=== PATIENT | male | born 1955 | race Hispanic/Latino ===

== ENCOUNTER 2018-01-27 07:58 | Emergency (ER) | payer MEDICARE, OTHER ==
[2018-01-27 08:50] LABS: Absolute Lymphocytes (CBC) 2.3 K/uL (0.7-4.9); Absolute Monocytes 0.4 K/uL (0.1-1.3); Absolute Neutrophil 2.5 K/uL (1.8-8.0); Basophils % 0.8 % (0-1.3); Eosinophils % 6.4 % (0-4.4); Hematocrit 45.3 % (39.6-49.0); Lymphocytes % 40.5 % (15.3-44.8); MCH 33.5 pg (27.0-35.0); MCV 95.3 fL (80-100); Monocytes % 7.4 % (3.3-12.3); RBC Red Blood Cell Count 4.76 M/uL (4.33-5.43)
[2018-01-27 09:00] LABS: BUN Blood Urea Nitrogen 9 mg/dL (7-18); Bicarbonate 26 mmol/L (21-32); Glucose Level 129 mg/dL (74-106); Potassium 3.8 mmol/L (3.5-5.1); Sodium Level 141 mmol/L (136-145)
--- NOTE | 2018-01-27 09:49 | RAD REPORT ---
EXAM DESCRIPTION: CT - Head Brain Wo Cont - 01/27/2018 9:18 am CLINICAL HISTORY: Numbness to left face COMPARISON: None. TECHNIQUE: Computed axial tomography of the head was obtained. IV contrast was not requested. All CT scans are performed using dose optimization technique as appropriate and may include automated exposure control or mA/KV adjustment according to patient size. FINDINGS: An intracranial bleed is not seen . The ventricles are normal in caliber. No extra-axial fluid collection is noted. Fluid within the sinuses/ mastoids is not seen. IMPRESSION: No acute intracranial abnormality is seen. If patient's symptoms persist MRI of the bra in would be recommended.
--- NOTE | 2018-01-27 09:56 | RAD REPORT ---
EXAM DESCRIPTION: CT - Soft Tissue Neck W/Contr - 01/27/2018 9:20 am CLINICAL HISTORY: Neck pain with neck swelling COMPARISON: None. TECHNIQUE: Computed axial tomography of the neck was obtained. 50 cc Isovue 300 was administered in travenously. Coronal and sagittal reconstruction was performed. All CT scans are performed using dose optimization technique as appropriate and may include automated exposure control or mA/KV adjustment according to patient size. FINDINGS: The pharynx, tongue base, larynx and subglottic trachea appear unremarkable The parotid, submandibular and thyroid glands appear unremarkable. No lymphadenopathy is seen The sinuses and mastoids are clear. IMPRESSION: Unremarkable examination.
--- NOTE | 2018-01-27 10:01 | ER ---
Nurse's Notes [facility] Name: Charanjit Lopez Age: 62 yrs Sex: Male : 1955 Arrival Date: 01/27/2018 Time: 08:03 Bed 14 Private MD: Raf Dixon Diagnosis: Facial spasm Presentation: 01/27 08:12 Presenting complaint: Patient states: has had left sided neck pain X 2 days, thinks he iw slept wrong, also feels intermittent twitching and numbness on left side of face, denies weakness in arms or legs, pt also states he felt a pop in left shoulder 4-5 days ago and has had pain since then. Transition of care: patient was not received from another setting of care. Onset of symptoms was January 25, 2018. Risk Assessment: Do you want to hurt yourself or someone else? Patient reports no desire to harm self or others. Initial Sepsis Screen: Does the patient meet any 2 criteria? No. Patient's initial sepsis screen is negative. Does the patient have a suspected source of infection? No. Patient's initial sepsis screen is negative. Care prior to arrival: None. 08:12 Method Of Arrival: Ambulatory iw 08:12 Acuity: DARION 3 iw Historical: - Allergies: 08:24 NKA; iw - Home Meds: 08:24 metformin 500 mg Oral tab 1 tab 2 times per day [Active]; Hydrocodone-Acetaminophen iw Oral [Active]; - PMHx: 08:24 Diabetes - NIDDM; Chronic pain; iw - PSHx: 08:24 Lino hip replacement; knee replacement; Hernia repair; left femur; iw - Immunization history:: Adult Immunizations. - Ebola Screening: : Patient negative for fever greater than or equal to 101.5 degrees Fahrenheit, and additional compatible Ebola Virus Disease symptoms Patient denies exposure to infectious person Patient denies travel to an Ebola-affected area in the 21 days before illness onset No symptoms or risks identified at this time. - Family history:: not pertinent. - Social history:: Smoking status: Patient/guardian denies using tobacco. - Hospitalizations: : No recent hospitalization is reported. Screenin:22 Abuse screen: Denies threats or abuse. Denies injuries from another. Nutritional jl7 screening: No deficits noted. Tuberculosis screening: No symptoms or risk factors identified. Fall Risk None identified. Assessment: 08:22 General: Appears in no apparent distress. uncomfortable, Behavior is calm, cooperative, jl7 appropriate for age. Pain: Complains of pain in left posterior aspect of neck Pain does not radiate. Pain currently is 4 out of 10 on a pain scale. Pain began 2-3 days ago. Is intermittent. Neuro: Level of Consciousness is awake, alert, obeys commands, Oriented to person, place, time, situation, Binder Cutter are equal bilaterally Moves all extremities. Gait is steady, Speech is normal, Facial symmetry appears normal, Pupils are PERRLA. Cardiovascular: Patient's skin is warm and dry. Respiratory: Airway is patent Respiratory effort is even, unlabored, Respiratory pattern is regular, symmetrical. GI: No signs and/or symptoms were reported involving the gastrointestinal system. : No signs and/or symptoms were reported regarding the genitourinary system. EENT: No signs and/or symptoms were reported regarding the EENT system. Derm: Skin is pink, warm \T\ dry. Musculoskeletal: No signs and/or symptoms reported regarding the musculoskeletal system. 09:00 Reassessment: No changes from previously documented assessment. Patient and/or family jl7 updated on plan of care and expected duration. Pain level reassessed. Patient is alert, oriented x 3, equal unlabored respirations, skin warm/dry/pink. 10:07 Reassessment: Patient appears in no apparent distress at this time. Patient and/or iw family updated on plan of care and expected duration. Pain level reassessed. Patient is alert, oriented x 3, equal unlabored respirations, skin warm/dry/pink. Vital Signs: 08:20 BP 159 / 93; Pulse 77; Resp 18 S; Temp 98.2; Pulse Ox 98% on R/A; Weight 132 kg; Height iw 5 ft. 6 in. (167.64 cm); Pain 4/10; 09:09 BP 142 / 89; Pulse 64; Resp 16; Pulse Ox 98% ; jl7 08:20 Body Mass Index 46.97 (132.00 kg, 167.64 cm) ED Course: 08:03 Patient arrived in ED. mr 08:04 Raf Dixon MD is Private Physician. mr 08:08 Saniya Murray RN is Primary Nurse. jl7 08:11 Bari Muniz MD is Attending Physician. rn 08:19 Triage completed. iw 08:20 Arm band placed on. iw 08:22 Patient has correct armband on for positive identification. Bed in low position. Call jl7 light in reach. Side rails up X 1. Pulse ox on. NIBP on. 08:33 Missed attempt(s): 20 gauge in left antecubital area. Bleeding controlled, band aid jl7 applied, catheter tip intact. 08:36 Inserted saline lock: 20 gauge in right antecubital area, using aseptic technique. jl7 Blood collected. 08:44 Radiology exam delayed due to lab results not completed at this time. (BUN/Creatinine). vr 09:[address] via wheelchair. vr 09:17 CT completed. Patient tolerated procedure well. Patient moved back from CT. vr 09:18 CT Head Brain wo Cont In Process Unspecified. EDMS 09:18 CT Soft Tissue Neck W/contr In Process Unspecified. EDMS 09:19 CT completed. Patient tolerated procedure well. vr 10:07 No provider procedures requiring assistance completed. IV discontinued, intact, iw bleeding controlled, No redness/swelling at site. Pressure dressing applied. Administered Medications: No medications were administered Outcome: 10:00 Discharge ordered by . rn 10:07 Discharged to home ambulatory. iw 10:07 Condition: good 10:07 Discharge instructions given to patient, Instructed on discharge instructions, follow up and referral plans. Demonstrated understanding of instructions, follow-up care. 10:08 Patient left the ED. iw Signatures: Dispatcher [employer] Kayla Love Irene, RN RN iw Nieto, Roman, MD MD rn Davis, Victoria vr Saniya Murray RN RN jl7
--- NOTE | 2018-01-27 10:02 | EDPHYS ---
Physician Documentation [facility] Name: Charanjit Lopez Age: 62 yrs Sex: Male : 1955 Arrival Date: 01/27/2018 Time: 08:03 Bed 14 Private MD: Raf Dixon ED Physician Bari Muniz HPI: 01/27 08:22 This 62 yrs old Male presents to ER via Ambulatory with complaints of face rn twitching and swelling. 08:22 The patient or guardian complains of swelling. The symptoms are located on the left rn neck/mandible/parotid area. Onset: The symptoms/episode began/occurred yesterday. Associated signs and symptoms: Pertinent positives: Paresthesias. Severity of symptoms: At their worst the symptoms were very mild, in the emergency department the symptoms are unchanged. The patient has not experienced similar symptoms in the past. Reports noticed left facial twitching and subjective left facial/neck swelling, intermittent, no trauma. Under a lot of stress lately. No other focal weakness/numbness/speech problem. . Historical: - Allergies: 08:24 NKA; iw - Home Meds: 08:24 metformin 500 mg Oral tab 1 tab 2 times per day [Active]; Hydrocodone-Acetaminophen iw Oral [Active]; - PMHx: 08:24 Diabetes - NIDDM; Chronic pain; iw - PSHx: 08:24 Lino hip replacement; knee replacement; Hernia repair; left femur; iw - Immunization history:: Adult Immunizations. - Ebola Screening: : Patient negative for fever greater than or equal to 101.5 degrees Fahrenheit, and additional compatible Ebola Virus Disease symptoms Patient denies exposure to infectious person Patient denies travel to an Ebola-affected area in the 21 days before illness onset No symptoms or risks identified at this time. - Family history:: not pertinent. - Social history:: Smoking status: Patient/guardian denies using tobacco. - Hospitalizations: : No recent hospitalization is reported. ROS: 08:22 Constitutional: Negative for fever, chills, and weight loss, Eyes: Negative for injury, rn pain, redness, and discharge, Neck: Negative for injury, pain, and swelling, Cardiovascular: Negative for chest pain, palpitations, and edema, Respiratory: Negative for shortness of breath, cough, wheezing, and pleuritic chest pain, Abdomen/GI: Negative for abdominal pain, nausea, vomiting, diarrhea, and constipation, Back: Negative for injury and pain, MS/Extremity: Negative for injury and deformity, Skin: Negative for injury, rash, and discoloration, Neuro: Negative for headache, weakness, and seizure. Exam: 08:22 Constitutional: This is a well developed, well nourished patient who is awake, alert, rn and in no acute distress. Head/Face: Normocephalic, atraumatic. Eyes: Pupils equal round and reactive to light, extra-ocular motions intact. Lids and lashes normal. Conjunctiva and sclera are non-icteric and not injected. Cornea within normal limits. Periorbital areas with no swelling, redness, or edema. ENT: Nares patent. No nasal discharge, no septal abnormalities noted. Oropharynx with no redness, swelling, or masses, exudates, or evidence of obstruction, uvula midline. Mucous membranes moist. Neck: Trachea midline, no thyromegaly or masses palpated, and no cervical lymphadenopathy. Supple, full range of motion without nuchal rigidity, or vertebral point tenderness. No Meningismus. Mild swelling left angle of mandible/parotid region/neck without tenderness Skin: Warm, dry with normal turgor. Normal color with no rashes, no lesions, and no evidence of cellulitis. MS/ Extremity: Pulses equal, no cyanosis. Neurovascular intact. Full, normal range of motion. Equal circumference. Neuro: Awake and alert, GCS 15, oriented to person, place, time, and situation. Cranial nerves II-XII grossly intact. Motor strength 5/5 in all extremities. Sensory grossly intact. Cerebellar exam normal. Normal gait. Vital Signs: 08:20 BP 159 / 93; Pulse 77; Resp 18 S; Temp 98.2; Pulse Ox 98% on R/A; Weight 132 kg; Height iw 5 ft. 6 in. (167.64 cm); Pain 4/10; 09:09 BP 142 / 89; Pulse 64; Resp 16; Pulse Ox 98% ; jl7 08:20 Body Mass Index 46.97 (132.00 kg, 167.64 cm) iw MDM: 08:11 Patient medically screened. rn 09:59 Differential diagnosis: stress reaction, spasms, subjective swelling. Data reviewed: rn vital signs, nurses notes, radiologic studies, CT scan, and as a result, I will discharge patient. Counseling: I had a detailed discussion with the patient and/or guardian regarding: the historical points, exam findings, and any diagnostic results supporting the discharge/admit diagnosis, radiology results, the need for outpatient follow up, to return to the emergency department if symptoms worsen or persist or if there are any questions or concerns that arise at home. Special discussion: I discussed with the patient/guardian in detail that at this point there is no indication for admission to the hospital. It is understood, however, that if the symptoms persist or worsen the patient needs to return immediately for re-evaluation. 01/27 08:22 Order name: CBC with Diff; Complete Time: 08:59 rn 01/27 08:22 Order name: Basic Metabolic Panel; Complete Time: 09:23 rn 01/27 08:22 Order name: IV Start; Complete Time: 08:42 rn 01/27 08:22 Order name: CT Head Brain wo Cont; Complete Time: 09:59 rn 01/27 08:22 Order name: CT Soft Tissue Neck W/contr; Complete Time: 09:59 rn Administered Medications: No medications were administered Disposition: 01/27/18 10:00 Discharged to Home. Impression: Facial spasm. - Condition is Fair. - Discharge Instructions: Muscle Cramps and Spasms. - Medication Reconciliation Form, Thank You Letter, Antibiotic Education, Prescription Opioid Use form. - Follow up: Private Physician; When: As needed; Reason: Recheck today's complaints, Re-evaluation by your physician. - Problem is new. - Symptoms have improved. Signatures: Dispatcher [employer] EDMS Lizz Knapp RN RN iw Nieto, Roman, MD MD rn Leal, Jahala, RN RN jl7 Corrections: (The following items were deleted from the chart) 10:08 10:00 01/27/2018 10:00 Discharged to Home. Impression: Facial spasm. Condition is Fair. iw Forms are Medication Reconciliation Form, Thank You Letter, Antibiotic Education, Prescription Opioid Use. Follow up: Private Physician; When: As needed; Reason: Recheck today's complaints, Re-evaluation by your physician. Problem is new. Symptoms have improved. rn
== END 2018-01-27 10:08 | disposition home or self-care (01) ==
LOC: ER 07:58
DX: G51.3 Clonic hemifacial spasm (principal); E11.9 Type 2 diabetes mellitus without complications
CPT/HCPCS: 36415; 70450; 70491; 80048; 85025; 99284; Q9967

== ENCOUNTER 2018-07-27 21:20 | Emergency (ER) | payer OTHER ==
--- NOTE | 2018-07-27 22:12 | RAD REPORT ---
EXAM DESCRIPTION: Emmy Palomares (2 Views)07/27/2018 10:02 pm CLINICAL HISTORY: Cough COMPARISON: 2012 FINDINGS: The lungs appear clear of acute infiltrate. The heart is normal size IMPRESSION: No acute abnormalities displayed
--- NOTE | 2018-07-27 22:43 | ER ---
Nurse's Notes [facility] Name: Charanjit Lopez Age: 63 yrs Sex: Male : 1955 Arrival Date: 07/27/2018 Time: 21:22 Bed 11 Private MD: Raf Dixon Diagnosis: Cough;Allergic rhinitis, unspecified Presentation: 07/27 21:29 Presenting complaint: Patient states: cough [id number]. pt seen by Dr. Ifeanyi al-allison, ak1 Asad marx. pt c/o increased cough, non-productive. pt c/o coughing causing SOB after "coughing fit". Transition of care: patient was not received from another setting of care. Onset of symptoms is unknown. Risk Assessment: Do you want to hurt yourself or someone else? Patient reports no desire to harm self or others. Initial Sepsis Screen:. Care prior to arrival: None. 21:29 Method Of Arrival: Ambulatory ak1 21:29 Acuity: DARION 4 ak1 21:35 Initial Sepsis Screen: Does the patient meet any 2 criteria? No. Patient's initial ak1 sepsis screen is negative. Does the patient have a suspected source of infection? No. Patient's initial sepsis screen is negative. Triage Assessment: 21:32 General: Appears in no apparent distress. Behavior is calm, cooperative, no resp ak1 distress noted. Historical: - Allergies: 21:32 NKA; ak1 - Home Meds: 21:32 metformin 1,000 mg oral tab 1 tab 2 times per day [Active]; ak1 - PMHx: 21:32 Diabetes - NIDDM; Chronic pain; ak1 - PSHx: 21:32 left femur; Hernia repair; knee replacement; Lino hip replacement; ak1 - Immunization history:: Adult Immunizations unknown. - Social history:: Smoking status: Patient/guardian denies using tobacco. - Ebola Screening: : No symptoms or risks identified at this time. Screenin:34 Abuse screen: Denies threats or abuse. Denies injuries from another. Nutritional ak1 screening: No deficits noted. Tuberculosis screening: No symptoms or risk factors identified. Fall Risk None identified. Assessment: 22:39 General: Appears in no apparent distress. Behavior is calm, cooperative. Pain: Denies iw pain. Neuro: Level of Consciousness is awake, alert, obeys commands, Moves all extremities. Respiratory: Reports shortness of breath cough that is Respiratory effort is even, unlabored, Respiratory pattern is regular, symmetrical. Derm: Skin is intact, is healthy with good turgor. Musculoskeletal: Range of motion: intact in all extremities. Vital Signs: 21:32 BP 129 / 88; Pulse 79; Resp 20; Temp 97.(O); Pulse Ox 97% on R/A; Weight 129.27 kg (R); ak1 Height 5 ft. 6 in. (167.64 cm) (R); Pain 0/10; 21:32 Body Mass Index 46.00 (129.27 kg, 167.64 cm) ak1 ED Course: 21:22 Patient arrived in ED. es 21:22 Raf Dixon MD is Private Physician. es 21:31 Triage completed. ak1 21:32 Arm band placed on Patient placed in waiting room, Patient notified of wait time. ak1 21:34 Patient has correct armband on for positive identification. ak1 21:50 Lizz Knapp RN is Primary Nurse. iw 21:53 Anne-Marie Nielsen FNP-C [facility]. kb 21:53 Agapito Hernandez MD is Attending Physician. kb 21:55 Patient moved to radiology via wheelchair. az 22:02 XRAY Chest Pa And Lat (2 Views) In Process Unspecified. EDMS 22:42 Raf Dixon MD is Referral Physician. kb 22:51 No provider procedures requiring assistance completed. Patient did not have IV access iw during this emergency room visit. Administered Medications: 22:47 Drug: SOLU-Medrol 125 mg Route: IM; Site: right deltoid; iw 22:55 Follow up: Response: No adverse reaction iw Point of Care Testing: Blood Glucose: 22:39 Blood Glucose: 141 mg/dL; iw Ranges: Outcome: 22:42 Discharge ordered by MD. kb 22:51 Discharged to home ambulatory. iw 22:51 Condition: good 22:51 Discharge instructions given to patient, Instructed on discharge instructions, follow up and referral plans. Demonstrated understanding of instructions, follow-up care. 22:52 Patient left the ED. iw Signatures: Dispatcher [employer] EDNY Anne-Marie Nielsen FNP-C FNP-Lorraine Riley Lizz Knapp RN RN Krenek, Kortney, RN RN ak1 Iliana Arellano az
--- NOTE | 2018-07-27 22:43 | EDPHYS ---
Physician Documentation [facility] Name: Charanjit Lopez Age: 63 yrs Sex: Male : 1955 Arrival Date: 07/27/2018 Time: 21:22 Bed 11 Private MD: Raf Dixon ED Physician Agapito Hernandez HPI: 07/27 22:41 This 63 yrs old Male presents to ER via Ambulatory with complaints of Chest kb Congestion, Cough. 22:41 The patient or guardian reports cough, that is constant, described as moderate, with no kb sputum. Onset: The symptoms/episode began/occurred 10 day(s) ago. Severity of symptoms: At their worst the symptoms were moderate, in the emergency department the symptoms are unchanged. Modifying factors: The symptoms are alleviated by nothing, the symptoms are aggravated by nothing. Associated signs and symptoms: Pertinent positives: rhinorrhea, Pertinent negatives: chest pain, diarrhea, ear ache, fever, nausea, sore throat, vomiting. The patient has not experienced similar symptoms in the past. The patient has not recently seen a physician. Historical: - Allergies: 21:32 NKA; ak1 - Home Meds: 21:32 metformin 1,000 mg oral tab 1 tab 2 times per day [Active]; ak1 - PMHx: 21:32 Diabetes - NIDDM; Chronic pain; ak1 - PSHx: 21:32 left femur; Hernia repair; knee replacement; Lino hip replacement; ak1 - Immunization history:: Adult Immunizations unknown. - Social history:: Smoking status: Patient/guardian denies using tobacco. - Ebola Screening: : No symptoms or risks identified at this time. ROS: 22:40 Constitutional: Negative for fever, chills, and weight loss, ENT: Negative for injury, kb pain, and discharge, Neck: Negative for injury, pain, and swelling, Cardiovascular: Negative for chest pain, palpitations, and edema, Abdomen/GI: Negative for abdominal pain, nausea, vomiting, diarrhea, and constipation, Back: Negative for injury and pain, : Negative for injury, bleeding, discharge, and swelling, MS/Extremity: Negative for injury and deformity, Skin: Negative for injury, rash, and discoloration, Neuro: Negative for headache, weakness, numbness, tingling, and seizure. 22:40 Respiratory: Positive for cough, Negative for dyspnea on exertion, hemoptysis, orthopnea, pleurisy, shortness of breath, sputum production, wheezing. Exam: 22:41 Constitutional: This is a well developed, well nourished patient who is awake, alert, kb and in no acute distress. Head/Face: Normocephalic, atraumatic. Chest/axilla: Normal chest wall appearance and motion. Nontender with no deformity. No lesions are appreciated. Cardiovascular: Regular rate and rhythm with a normal S1 and S2. No gallops, murmurs, or rubs. Normal PMI, no JVD. No pulse deficits. Respiratory: Lungs have equal breath sounds bilaterally, clear to auscultation and percussion. No rales, rhonchi or wheezes noted. No increased work of breathing, no retractions or nasal flaring. Abdomen/GI: Soft, non-tender, with normal bowel sounds. No distension or tympany. No guarding or rebound. No evidence of tenderness throughout. Skin: Warm, dry with normal turgor. Normal color with no rashes, no lesions, and no evidence of cellulitis. MS/ Extremity: Pulses equal, no cyanosis. Neurovascular intact. Full, normal range of motion. Neuro: Awake and alert, GCS 15, oriented to person, place, time, and situation. Cranial nerves II-XII grossly intact. Motor strength 5/5 in all extremities. Sensory grossly intact. Cerebellar exam normal. Normal gait. 22:41 ENT: Posterior pharynx: Airway: normal, no evidence of obstruction, erythema, that is moderate, drainage. Vital Signs: 21:32 BP 129 / 88; Pulse 79; Resp 20; Temp 97.(O); Pulse Ox 97% on R/A; Weight 129.27 kg (R); ak1 Height 5 ft. 6 in. (167.64 cm) (R); Pain 0/10; 21:32 Body Mass Index 46.00 (129.27 kg, 167.64 cm) ak1 MDM: 21:53 Patient medically screened. kb 22:40 Data reviewed: vital signs, nurses notes. Data interpreted: Pulse oximetry: on room air kb is 97 %. Interpretation: normal. Counseling: I had a detailed discussion with the patient and/or guardian regarding: the historical points, exam findings, and any diagnostic results supporting the discharge/admit diagnosis, radiology results, the need for outpatient follow up, a family practitioner, to return to the emergency department if symptoms worsen or persist or if there are any questions or concerns that arise at home. 07/27 21:36 Order name: XRAY Chest Pa And Lat (2 Views); Complete Time: 22:14 ak1 07/27 22:35 Order name: Blood Glucose Level; Complete Time: 22:39 kb Administered Medications: 22:47 Drug: SOLU-Medrol 125 mg Route: IM; Site: right deltoid; iw 22:55 Follow up: Response: No adverse reaction iw Point of Care Testing: Blood Glucose: 22:39 Blood Glucose: 141 mg/dL; iw Ranges: Critical Glucose Levels:Adult <50 mg/dl or >400 mg/dl <40 mg/dl or >180 mg/dl Disposition: 07/28 01:38 Co-signature as Attending Physician, Agapito Hernandez MD. Disposition: 07/27/18 22:42 Discharged to Home. Impression: Cough, Allergic rhinitis, unspecified. - Condition is Stable. - Discharge Instructions: Cough, Adult, [id number], Allergies, [id number]. - Medication Reconciliation Form, Thank You Letter, Antibiotic Education, Prescription Opioid Use form. - Follow up: Emergency Department; When: As needed; Reason: Worsening of condition. Follow up: Raf Dixon MD; When: 2 - 3 days; Reason: Recheck today's complaints, Continuance of care, Re-evaluation by your physician. Signatures: Dispatcher [employer] Anne-Marie Stack, MANAGEMENT INSTRUCTOR-C MANAGEMENT INSTRUCTOR-Ckb Lizz Knapp RN RN Kortney Barron RN RN ak1 Agapito Hernandez MD MD Corrections: (The following items were deleted from the chart) 07/27 22:52 22:42 07/27/2018 22:42 Discharged to Home. Impression: Cough; Allergic rhinitis, iw unspecified. Condition is Stable. Forms are Medication Reconciliation Form, Thank You Letter, Antibiotic Education, Prescription Opioid Use. Follow up: Emergency Department; When: As needed; Reason: Worsening of condition. Follow up: Raf Dixon; When: 2 - 3 days; Reason: Recheck today's complaints, Continuance of care, Re-evaluation by your physician. kb
[2018-07-27] MEDS ORDERED: METHYLPREDNISOLONE 125 MG INJ ONE (22:53)
== END 2018-07-27 22:52 | disposition home or self-care (01) ==
LOC: ER 21:20
DX: J30.9 Allergic rhinitis, unspecified (principal); R05 Cough; E11.9 Type 2 diabetes mellitus without complications; Z79.84 Long term (current) use of oral hypoglycemic drugs
CPT/HCPCS: 71046; 82962; J2930

== ENCOUNTER 2019-04-14 05:24 | Emergency (ER) | payer OTHER ==
--- NOTE | 2019-04-14 06:28 | ER ---
Nurse's Notes [facility] Name: Charanjit Lopez Age: 63 yrs Sex: Male : 1955 Arrival Date: 04/14/2019 Time: 05:24 Bed 4 Private MD: Diagnosis: Strain of muscle, fascia and tendon of abdomen Presentation: 04/14 05:30 Presenting complaint: Patient states: Pt states that 10 days ago he started to have fc right groin pain. Then 3 days ago he felt a pop in that area. Pain has gotten worse. Denies any urinary problems. Transition of care: patient was not received from another setting of care. Onset of symptoms was April 05, 2019. Risk Assessment: Do you want to hurt yourself or someone else? Patient reports no desire to harm self or others. Initial Sepsis Screen: Does the patient meet any 2 criteria? No. Patient's initial sepsis screen is negative. Does the patient have a suspected source of infection? No. Patient's initial sepsis screen is negative. Care prior to arrival: None. 05:30 Method Of Arrival: Ambulatory 05:30 Acuity: DARION 4 Triage Assessment: 05:30 General: Appears uncomfortable, obese, Behavior is calm, cooperative, appropriate for age. Pain: Complains of pain in right groin Pain currently is 6 out of 10 on a pain scale. Quality of pain is described as aching. EENT: No deficits noted. Neuro: Level of Consciousness is awake, alert, obeys commands, Oriented to person, place, time, situation, Appropriate for age. Cardiovascular: No deficits noted. Respiratory: No deficits noted. GI: No deficits noted. : Reports pain to right groin area. Derm: Skin is pink, warm \T\ dry. Musculoskeletal: Circulation, motion, and sensation intact. Capillary refill < 3 seconds, Range of motion: intact in all extremities. Historical: - Allergies: 05:51 NKA; fc - Home Meds: 05:51 metformin 1,000 mg Oral tab 1 tab 2 times per day [Active]; fc - PMHx: 05:51 Chronic pain; Diabetes - NIDDM; fc - PSHx: 05:51 bilateral hip; Knee surgery; fc - Immunization history:: Last tetanus immunization: up to date Flu vaccine is not up to date. - Social history:: Smoking status: Patient/guardian denies using tobacco, Patient/guardian denies using alcohol, street drugs. - Ebola Screening: : Patient negative for fever greater than or equal to 101.5 degrees Fahrenheit, and additional compatible Ebola Virus Disease symptoms Patient denies exposure to infectious person Patient denies travel to an Ebola-affected area in the 21 days before illness onset. Screenin:50 Abuse screen: Denies threats or abuse. Nutritional screening: No deficits noted. Tuberculosis screening: No symptoms or risk factors identified. Fall Risk None identified. Assessment: 06:15 General: Appears in no apparent distress. Behavior is calm, cooperative, appropriate ea for age. Pain: Complains of pain in epigastric area. Neuro: Level of Consciousness is awake, alert, obeys commands, Oriented to person, place, time. Cardiovascular: Patient's skin is warm and dry. Respiratory: Airway is patent Respiratory effort is even, unlabored, Respiratory pattern is regular, symmetrical. Derm: Skin is pink, warm \T\ dry. 06:30 Reassessment: Patient and/or family updated on plan of care and expected duration. Pain ea level reassessed. Patient is alert, oriented x 3, equal unlabored respirations, skin warm/dry/pink. Discharge instruction given to patient, verbalized the understanding of instruction. Pt left ED ambulatory tolerating well. Vital Signs: 05:49 BP 133 / 85; Pulse 69; Resp 16; Temp 97.9(O); Pulse Ox 99% on R/A; Weight 133.81 kg fc (R); Height 5 ft. 5 in. (165.10 cm) (R); Pain 6/10; 05:49 Body Mass Index 49.09 (133.81 kg, 165.10 cm) ED Course: 05:24 Patient arrived in ED. ds1 05:47 Triage completed. fc 05:48 German Phillip, INEZ is Primary Nurse. la1 05:49 Arm band placed on Patient placed in an exam room, on a stretcher. fc 05:50 Cirilo Ramirez PA is PHCP. jr8 05:50 Tony Oviedo MD is Attending Physician. jr8 05:50 Patient has correct armband on for positive identification. Placed in gown. Bed in low fc position. Call light in reach. Pulse ox on. NIBP on. 05:50 No provider procedures requiring assistance completed. xavier 06:34 Harika Salazar, RN is Primary Nurse. liam 06:34 Patient did not have IV access during this emergency room visit. liam Administered Medications: No medications were administered Outcome: 06:28 Discharge ordered by . chema 06:34 Discharged to home ambulatory, with family. liam 06:34 Condition: stable 06:34 Discharge instructions given to patient, Instructed on discharge instructions, follow up and referral plans. medication usage, Demonstrated understanding of instructions, follow-up care, medications, Prescriptions given X 1. 06:36 Patient left the ED. ea Signatures: Staci Bourgeois, RN RN Desiree Khan1 Cirilo Ramirez PA PA jr8 Attema, Lee, RN RN laHarika Brizuela, INEZ RN liam
--- NOTE | 2019-04-14 06:29 | EDPHYS ---
Physician Documentation [facility] Name: Charanjit Lopez Age: 63 yrs Sex: Male : 1955 Arrival Date: 04/14/2019 Time: 05:24 Bed 4 Private MD: ED Physician Tony Oviedo HPI: 04/14 05:59 This 63 yrs old Male presents to ER via Ambulatory with complaints of Groin jr8 Pain. 05:59 Onset: The symptoms/episode began/occurred 10 day(s) ago. Associated signs and jr8 symptoms: Pertinent negatives: chest pain, diarrhea, sore throat, vomiting, wheezing. Modifying factors: the patient symptoms are aggravated by sneezing, coughing, changing positions. Pt states he has had right groin/inguinal pain for the last 10 days, three days ago felt a "pop" and had worsening of pain. pt denies N/V/D or fever. . Historical: - Allergies: 05:51 NKA; fc - Home Meds: 05:51 metformin 1,000 mg Oral tab 1 tab 2 times per day [Active]; fc - PMHx: 05:51 Chronic pain; Diabetes - NIDDM; fc - PSHx: 05:51 bilateral hip; Knee surgery; fc - Immunization history:: Last tetanus immunization: up to date Flu vaccine is not up to date. - Social history:: Smoking status: Patient/guardian denies using tobacco, Patient/guardian denies using alcohol, street drugs. - Ebola Screening: : Patient negative for fever greater than or equal to 101.5 degrees Fahrenheit, and additional compatible Ebola Virus Disease symptoms Patient denies exposure to infectious person Patient denies travel to an Ebola-affected area in the 21 days before illness onset. ROS: 06:00 Constitutional: Negative for fever, chills, and weight loss, Eyes: Negative for injury, jr8 pain, redness, and discharge, ENT: Negative for injury, pain, and discharge, Neck: Negative for injury, pain, and swelling, Cardiovascular: Negative for chest pain, palpitations, and edema, Respiratory: Negative for shortness of breath, cough, wheezing, and pleuritic chest pain, Back: Negative for injury and pain, MS/Extremity: Negative for injury and deformity, Neuro: Negative for headache, weakness, numbness, tingling, and seizure. 06:00 Abdomen/GI: Positive for nausea and vomiting. Exam: 06:01 Constitutional: This is a well developed, well nourished patient who is awake, alert, jr8 and in no acute distress. Head/Face: Normocephalic, atraumatic. Eyes: Pupils equal round and reactive to light, extra-ocular motions intact. Lids and lashes normal. Conjunctiva and sclera are non-icteric and not injected. Cornea within normal limits. Periorbital areas with no swelling, redness, or edema. ENT: Nares patent. No nasal discharge, no septal abnormalities noted. Tympanic membranes are normal and external auditory canals are clear. Oropharynx with no redness, swelling, or masses, exudates, or evidence of obstruction, uvula midline. Mucous membranes moist. Neck: Trachea midline, no thyromegaly or masses palpated, and no cervical lymphadenopathy. Supple, full range of motion without nuchal rigidity, or vertebral point tenderness. No Meningismus. Chest/axilla: Normal chest wall appearance and motion. Nontender with no deformity. No lesions are appreciated. Cardiovascular: Regular rate and rhythm with a normal S1 and S2. No gallops, murmurs, or rubs. Normal PMI, no JVD. No pulse deficits. Respiratory: Lungs have equal breath sounds bilaterally, clear to auscultation and percussion. No rales, rhonchi or wheezes noted. No increased work of breathing, no retractions or nasal flaring. MS/ Extremity: Pulses equal, no cyanosis. Neurovascular intact. Full, normal range of motion. 06:01 Abdomen/GI: Inspection: abdomen appears normal, obese scar(s), are noted in the epigastric area, Bowel sounds: normal, in all quadrants, Palpation: abdomen is soft and non-tender, in all quadrants, Indicators: McBurney's point is not tender, Garcia's sign is negative, Rovsing's sign is negative, Obturator sign is negative, Psoas sign is negative. Vital Signs: 05:49 BP 133 / 85; Pulse 69; Resp 16; Temp 97.9(O); Pulse Ox 99% on R/A; Weight 133.81 kg fc (R); Height 5 ft. 5 in. (165.10 cm) (R); Pain 6/10; 05:49 Body Mass Index 49.09 (133.81 kg, 165.10 cm) MDM: 05:50 Patient medically screened. jr8 06:22 Data reviewed: vital signs, nurses notes. Data interpreted: Pulse oximetry: on room air jr8 is 99 %. Interpretation: normal. Counseling: I had a detailed discussion with the patient and/or guardian regarding: the historical points, exam findings, and any diagnostic results supporting the discharge/admit diagnosis. ED course: Extensive discussion of symptomatic care for possible direct inguinal hernia vs. Musculoskeletal strain, Pt on anti inflammatories already from ortho and will add pain medicine for comfort. Pt instructed to rest until he has symptomatic relief . Administered Medications: No medications were administered Disposition: 04/14/19 06:28 Discharged to Home. Impression: Strain of muscle, fascia and tendon of abdomen. - Condition is Stable. - Discharge Instructions: Abdominal Pain, Adult, Muscle Strain. - Prescriptions for Tylenol- Codeine #3 300-30 mg Oral Tablet - take 2 tablets by ORAL route every 6 hours As needed; 12 tablet. - Medication Reconciliation Form, Thank You Letter, Prescription Opioid Use form. - Follow up: Private Physician; When: As needed; Reason: Recheck today's complaints, Continuance of care, Re-evaluation by your physician. - Problem is new. - Symptoms have improved. Signatures: Staci Bourgeois RN RN Cirilo Ramirez PA PA jr8 Harika Salazar RN RN ea Corrections: (The following items were deleted from the chart) 06:36 06:28 04/14/2019 06:28 Discharged to Home. Impression: Strain of muscle, fascia and ea tendon of abdomen. Condition is Stable. Forms are Medication Reconciliation Form, Thank You Letter, Antibiotic Education, Prescription Opioid Use. Follow up: Private Physician; When: As needed; Reason: Recheck today's complaints, Continuance of care, Re-evaluation by your physician. Problem is new. Symptoms have improved. jr8
[2019-04-14 06:40] VITALS: BP 133/85; TEMP 97.9; O2SAT 99
== END 2019-04-14 06:36 | disposition home or self-care (01) ==
LOC: ER 05:24
DX: S39.011A Strain of muscle, fascia and tendon of abdomen, initial encounter (principal); E11.9 Type 2 diabetes mellitus without complications; X58.XXXA Exposure to other specified factors, initial encounter
CPT/HCPCS: 99283

== ENCOUNTER 2020-01-06 11:33 | Emergency (ER) | payer OTHER ==
--- OUTSIDE RECORDS SUMMARY | 2020-01-06 11:36 | XMS REPORT | Summary of Care ---
:1955 Author Organization [facility] Address [address] [place] [id number] Care Team Providers Name Role Phone Raf Dixon Primary Care Provider Reason for Visit Reason Comments New Evaluation Knee Pain Rt Encounter Details Date Type Department Care Team Description 12/06/2019 Office Visit [facility] Orthopaedic Stephen Brewer eft knee pain, Surgery- Nora Granados MD unspecified chronicity [address] [facility], [address] ([address]x) [address] [place] [address] [address] [place], [place] [phone] Allergies No Known Allergiesdocumented as of this encounter (statuses as of 12/06/2019) Medications Medication Sig Dispensed Refills Start Date End Date Status methylPREDNISolone Take 21 Tabs by 1 Each 0 09/12/2015 Active (MEDROL, SADE,) 4 mg mouth tablets SEE-INSTRUCTIONS . follow package directions traMADOL (ULTRAM) 50 mg Take 1 Tab by 40 Tab 0 09/12/2015 Active tablet mouth every 4 (four) hours as needed for Pain (scale 4-6) or Pain unrelieved by non-narcotic analgesics. metFORMIN 1,000 mg TK 1 T PO BID 0 06/20/2017 Active tablet omeprazole 40 mg capsule TK ONE C PO QAM 2 7 Active oseltamivir 75 mg TK 1 C PO BID 0 07/13/2017 Active capsule DICLOFENAC 75 mg EC TAKE 1 TABLET BY 180 tablet 0 04/05/2019 Active tabletIndications: Right MOUTH TWICE hip pain DAILY WITH MEALS DICLOFENAC 75 mg EC TAKE 1 TABLET BY 60 tablet 0 05/03/2019 Active tabletIndications: Right MOUTH TWICE hip pain DAILY WITH MEALS meclizine 25 mg Take 1 tablet by 20 tablet 0 10/22/2019 Active tabletIndications: mouth 3 (three) Vertigo times daily as needed for Dizziness. Hospital, Clinic, or Ordered Dose Route Frequency Start Date End D ate Status Other Facility Administered Medication triamcinolone 40 mg Intra-articu ONCE 12/06/2019 12/06/2019 E nded acetonide (KENALOG) injection 40 mg documented as of this encounter (statuses as of 12/06/2019) Active Problems Problem Noted Date Left knee pain 09/12/2015 Right hip pain 09/12/2015 Right wrist pain 09/12/2015 BMI 45.0-49.9, adult 02/28/2015 Right lower quadrant abdominal pain 02/28/2015 documented as of this encounter (statuses as of 12/06/2019) Social History Tobacco Use Types Packs/Day Years Used Date Former Smoker Cigarettes Smokeless Tobacco: Never Used Alcohol Use Drinks/Week oz/Week Comments Yes 0 Standard drinks or equivalent 0.0 about 6 beer a week Sex Assigned at Date Recorded Not on file Job Start Date Occupation Industry Not on file Not on file Not on file Travel History Travel Start Travel End No recent travel history available. COVID-19 Exposure Response Date Recorded In the last month, have you been in contact with No / Unsure 12/06/2019 1:55 PM CDT someone who was confirmed or suspected to have Coronavirus / COVID-19? documented as of this encounter Last Filed Vital Signs Vital Sign Reading Time Taken Comments Blood Pressure 134/83 12/06/2019 2:01 PM CDT Pulse 76 12/06/2019 2:01 PM CDT Temperature - - Respiratory Rate - - Oxygen Saturation - - Inhaled Oxygen Concentration - - Weight 124.3 kg (274 lb) 12/06/2019 1:58 PM CDT Height 167.6 cm (5' 6") 12/06/2019 1:58 PM CDT Body Mass Index 44.22 12/06/2019 1:58 PM CDT documented in this encounter Progress Notes Stephen Brewer MD - 12/06/2019 2:30 PM CDT Cc: Chief Complaint Patient presents with New Evaluation Knee Pain Rt X 1 week, no specific injury, no recent films. Came in wbat, no use of any dme for assistance. States has had pains in the past as well. Izaiah Burciaga 12/06/2019 2:00 PM Charanjit Lopez is a 64 year old male. Knee Pain The incident occurred 5 to 7 days ago. The incident occurred at home. There was no injury mechanism.The pain is present in the right knee. The quality of the pain is described as aching, burning and stabbing. The pain is at a severity of 6/10. The pain is moderate. The pain has been worsening since onset. Associated symptoms include an inability to bear weight and a loss of motion. Pertinent negatives include no numbness. The symptoms are aggravated by movement and weight bearing. He has tried non-weight bearing and immobilization for the symptoms. The treatment provided mild relief. Allergies Charanjit has No Known Allergies. Medications Outpatient Medications Prior to Visit Medication Sig Dispense Refill metFORMIN 1,000 mg tablet TK 1 T PO BID 0 meclizine 25 mg tablet Take 1 tablet by mouth 3 (three) times daily as needed for Dizziness. 20 tablet 0 DICLOFENAC 75 mg EC tablet TAKE 1 TABLET BY MOUTH TWICE DAILY WITH MEALS 60 tablet 0 DICLOFENAC 75 mg EC tablet TAKE 1 TABLET BY MOUTH TWICE DAILY WITH MEALS 180 tablet 0 omeprazole 40 mg capsule TK ONE C PO QAM 2 oseltamivir 75 mg capsule TK 1 C PO BID 0 methylPREDNISolone (MEDROL, SADE,) 4 mg tablets Take 21 Tabs by mouth SEE- INSTRUCTIONS. follow package directions 1 Each 0 traMADOL (ULTRAM) 50 mg tablet Take 1 Tab by mouth every 4 (four) hours as needed for Pain (scale 4-6) or Pain unrelieved by non-narcotic analgesics. 40 Tab 0 No facility-administered medications prior to visit. Histories Past Medical History: Diagnosis Date Left knee pain 09/12/2015 Right hip pain 09/12/2015 Right wrist pain 09/12/2015 Sleep apnea Past Surgical History: Procedure Laterality Date GASTROPLASTY,OBESITY,VERT BAND HERNIA REPAIR HIP RESECTION ARTHROPLASTY Right 12/2014, HIP RESECTION ARTHROPLASTY Left 1999 [place] ANEST[place],KNEE AREA SURGERY Left 2011, 2013 Social History Socioeconomic History Marital status: Spouse name: Not on file Number of children: Not on file Years of education: Not on file Highest education level: Not on file Occupational History Occupation: self employeed Social Needs Financial resource strain: Not on file Food insecurity: Worry: Not on file Inability: Not on file Transportation needs: Medical: Not on file Non-medical: Not on file Tobacco Use Smoking status: Former Smoker Types: Cigarettes Smokeless tobacco: Never Used Substance and Sexual Activity Alcohol use: Yes Alcohol/week: 0.0 standard drinks Comment: about 6 beer a week Drug use: No Sexual activity: Yes Partners: Female control/protection: None Lifestyle Physical activity: Days per week: Not on file Minutes per session: Not on file Stress: Not on file Relationships Social connections: Talks on phone: Not on file Gets together: Not on file Attends nondenominational service: Not on file Active member of club or organization: Not on file Attends meetings of clubs or organizations: Not on file Relationship status: Not on file Intimate partner violence: Fear of current or ex partner: Not on file Emotionally abused: Not on file Physically abused: Not on file Forced sexual activity: Not on file Other Topics Concern Not on file Social History Narrative Lives with . golfs often and belong to a golf club. Family History Problem Relation Age of Onset High cholesterol Mother Cancer Father Hypertension Father Arthritis Father Diabetes Father Diabetes Brother Review of Systems Constitutional: Negative. HENT: Negative. Eyes: Negative. Respiratory: Negative. Breasts: Negative. Cardiovascular: Negative. Gastrointestinal: Negative. Genitourinary: Negative. Musculoskeletal: Positive for joint swelling. Skin: Negative. Neurological: Negative. Negative for numbness. Psychiatric/Behavioral: Negative. Endocrine: Endocrine negative Vital Signs BP (!) 143/88 | Pulse 75 | Ht 66" (167.6 cm) | Wt 124.3 kg (274 lb) | BMI 44.22 kg/m Physical Exam Musculoskeletal: General: Well-developed well-nourished oriented to person place and time HEENT normocephalic atraumatic atraumatic pupils equal round reactive to light extraocular muscles intact Cervical thoracic and lumbar spine without focal deficit normal kyphosis and lordosis Chest clear to auscultation and percussion Cardiovascular regular rate and rhythm without gallop rub or murmur soft without organomegaly Normal bowel sounds Neurologic: Focal myotome or dermatomal deficits Vascular: Intact symmetrical bilateral upper and lower extremities Skin without stasis varicosities or breakdown Extremities without cyanosis clubbing or edema Lymphatics no peripheral lymphedema Psych normal mood and affect. Neurovascular function is intact. To include brisk capillary refill warm pink skin active motor function and sensory function intact. Nursing note and vitals reviewed. Assessment/Plan Left knee djd Patient received an ultrasound guided injection of 1cc kenalog and 4cc lidocaine to the left knee. The knee was examined and the knee was marked with the needle In the middle of the lateral joint line just lateral to the patellar tendon the knee was then prepped 3 times with Betadine in a Bullseye fashion and then once with alcohol allowing it to soak at least 20 seconds. Ultrasound guidance was usedto direct the needle posterior to the fat pad and an injection was administered of 1 cc Kenalog with4 cc 1% lidocaine without epinephrine without resistance. The skin was cleansed with alcohol and then dried with a sterile 4 x 4 and a sterile Band-Aid was applied patient tolerated procedure without di fficulty. documented in this encounter Plan of Treatment Health Maintenance Due Date Last Done Comments HEPATITIS C (HCV) SCREEN 1955 DTaP,Tdap,and Td Vaccines (1 - 1966 Tdap) COLONOSCOPY 2005 Zoster Recombinant Vaccine 2005 (SHINGRIX) (1 of 2) LUNG CANCER SCREEN: Recommended 2010 for age 55-80 with 30 + pack year history INFLUENZA VACCINE (Season Ended) 2020 Depression Screening 04/05/2020 04/05/2019 PNEUMOCOCCAL 0-64 YEARS COMBINED Aged Out No longer eligible based on SERIES patient's age to complete this topic documented as of this encounter Results Not on filedocumented in this encounter Visit Diagnoses Diagnosis Left knee pain, unspecified chronicity - Primary documented in this encounter Administered Medications Medication Order MAR Action Action Date Dose Rate Site triamcinolone acetonide Given 12/06/2019 2:09 PM 40 mg Right Knee (KENALOG) injection 40 mg CDT 40 mg, Intra-articular, ONCE, 1 dose, Nhi 12/06/19 at 1515, Routine documented in this encounter Insurance Payer Benefit Plan / Subscriber ID Effective Dates Phone Addre ss Type Group AETNA AETNA CHOICE [id number] 2019-Pres POS POS II ent MEDICARE MEDICARE PART xxxxxxxxxxx 2011-Presen [phone] [facility] Medicare A & B t 2 [id number] VINNY ZAMAN [id number] documented as of this encounter
--- OUTSIDE RECORDS SUMMARY | 2020-01-06 11:36 | XMS REPORT | Continuity of Care Document ---
:1955 Author Organization [facility] t Address [address] [place] [address] Care Team Providers Name Role Phone Ponoreen, Acute Care Clinic Attending Clinician Unavailable Darwin Brewer MD Attending Clinician Problems This patient has no known problems. Allergies, Adverse Reactions, Alerts This patient has no known allergies or adverse reactions. Medications This patient has no known medications. Procedures This patient has no known procedures. Encounters Start End Encounter Admission Attending Care Care Encounter Source Date/Time Date/Time Type Type Clinicians Facility Department ID 2020-01-03 2020-01-03 Telephone [facility] [id number] 00:00:00 00:00:00 [facility] [id number] [place] [id number] Professio [phone] [address]al [address] 2019-12-06 2019-12-26 Office ANITA Brewer [id number] 13:43:57 [facility]05:[id number] [facility] [id number] Specialti [id number] 198 [place] Results This patient has no known results.
--- OUTSIDE RECORDS SUMMARY | 2020-01-06 11:36 | XMS REPORT | Summary of Care ---
:1955 Author Organization [facility] - [facility] Address [address] [place] [address] Care Team Providers Name Role Phone Raf Dixon Primary Care Provider Reason for Visit Reason Comments Dizziness Auth/Cert Status Reason Specialty Diagnoses / Referred By Referred To Procedures Contact Contact Emergency Medicine [facility] Em ergency Dept [address] [place] [address] [place] [phone] Fax: Encounter Details Date Type Department Care Team Description 10/22/2019 Emergency ADC-Emergency Mouna Knapp, Vertigo (Primary Dx) Department DO [address] [place] [address] [place] [id number] [place] [address] [id number] Allergies No Known Allergiesdocumented as of this encounter (statuses as of 10/22/2019) Medications Medication Sig Dispensed Refills Start Date [...] Vertigo times daily as needed for Dizziness. documented as of this encounter (statuses as of 10/22/2019) Active Problems Problem Noted Date Left knee pain 09/12/2015 Right hip pain 09/12/2015 Right wrist pain 09/12/2015 BMI 45.0-49.9, adult 02/28/2015 Right lower quadrant abdominal pain 02/28/2015 documented as of this encounter (statuses as of 10/22/2019) Social History Tobacco Use Types Packs/Day Years [...] Travel End No recent travel history available. documented as of this encounter Last Filed Vital Signs Vital Sign Reading Time Taken Comments Blood Pressure 133/91 10/22/2019 7:00 AM CDT Pulse 67 10/22/2019 7:00 AM CDT Temperature 36.5 C (97.7 F) 10/22/2019 5:46 AM CDT Respiratory Rate 16 10/22/2019 7:00 AM CDT Oxygen Saturation 98% 10/22/2019 7:00 AM CDT Inhaled Oxygen Concentration - - Weight 125.2 kg (276 lb) 10/22/2019 5:46 AM CDT Height 167.6 cm (5' 6") 10/22/2019 5:46 AM CDT Body Mass Index 44.55 10/22/2019 5:46 AM CDT documented in this encounter Discharge Instructions Mouna Leigh DO - 10/22/2019DIAGNOSIS 1. Vertigo NO LIFE-THREATENING FINDINGS ON TODAY'S EXAM. PROCEDURES IN THE ER TODAY: Blood work Urine test EKG MEDICATIONS ADMINISTERED IN THE ER TODAY: Ativan Antivert IV fluids Magnesium YOUR PRESCRIPTIONS AND [id number] MEDICATION RECOMMENDATIONS: Antivert by mouth every 8 hours as needed for spinning/moving sensation. SPECIAL CARE INSTRUCTIONS: None FOLLOW-UP RECOMMENDATIONS: RECOMMEND FOLLOW-UP WITH A PRIMARY CARE PROVIDER OR SPECIALIST IN 2-5 DAYS, ESPECIALLY IF NO IMPROVEMENT IN SYMPTOMS. TO FOLLOW-UP WITHIN THE [facility], TRY THESE OPTIONS (CLINIC APPOINTMENTS AVAILABLE ON YLIB-DC-BVSE BASIS): 1. SCHEDULE AN APPOINTMENT ONLINE AT WWW[facility] 2. OR CALL THE [facility] ACCESS CENTER AT OR 3. OR CALL YOUR [facility] PHYSICIAN'S OFFICE DIRECTLY IF YOU ARE ALREADY AN ESTABLISHED [facility] PATIENT. OR, YOU MAY FOLLOW-UP WITH A PROVIDER OF YOUR CHOICE, SUCH : 1. A PHYSICIAN OF YOUR CHOICE 2. [facility], . LOCATIONS IN [facility] 3. [facility], [address], [place]; [phone] RETURN TO ER FOR WORSENING OF SYMPTOMS. AttachmentsThe following attachments cannot be sent through Care Everywhere. Dizziness (Vertigo) with Medicines, Managing (Dominican)documented in this encounter Plan of Treatment Health Maintenance Due Date Last Done Comments HEPATITIS C (HCV) SCREEN 1955 DTaP,Tdap,and Td Vaccines (1 - 1966 Tdap) COLONOSCOPY 2005 Zoster Recombinant Vaccine 2005 (SHINGRIX) (1 of 2) LUNG CANCER SCREEN: Recommended 2010 for age 55-80 with 30 + pack year history INFLUENZA VACCINE (#1) 2019 PNEUMOCOCCAL 0-64 YEARS COMBINED Aged Out No longer eligible based on SERIES patient's age to complete this topic documented as of this encounter Procedures Procedure Name Priority Date/Time Associated Comments Diagnosis URINALYSIS STAT 10/22/2019 6:03 Vertigo Results for this AM CDT procedure are i n the results section. CBC WITH DIFFERENTIAL STAT 10/22/2019 6:00 Vertigo Re sults for this AM CDT procedure are i n the results section. CBC WITH DIFFERENTIAL Routine 10/22/2019 6:00 Vertigo Re sults for this AM CDT procedure are i n the results section. BASIC METABOLIC PANEL STAT 10/22/2019 6:00 Vertigo Re sults for this (NA, K, CL, CO2, AM CDT procedure a re in GLUCOSE, BUN, the results CREATININE, CA) section. TROPONIN I STAT 10/22/2019 6:00 Vertigo Results for this AM CDT procedure are i n the results section. MAGNESIUM STAT 10/22/2019 6:00 Vertigo Results for this AM CDT procedure are i n the results section. EKG-12 LEAD STAT 10/22/2019 5:55 AM CDT POCT GLUCOSE Routine 10/22/2019 5:50 Results for this (AUTOMATED) AM CDT procedure are i n the results section. documented in this encounter Results Urinalysis (10/22/2019 6:03 AM CDT) [facility] Signature APPEARANCE Clear Clear [facility] COLOR Yellow Yellow [facility] PH 5.0 4.8 - 8.0 [facility] SP GRAVITY 1.032 (H) 1.003 - 1.030 [facility] GLU U QUAL 500 mg/dL (A) Normal [facility] BLOOD NegativeComment: Negative [facility] INTERFERENCE FROM HOSPITAL LABORATORY ASCORBIC ACID MAY CAUSE FALSE NEGATIVE RESULT KETONES 5 mg/dL (A) Negative [facility] PROTEIN Negative Negative [facility] UROBILIN Normal Normal [facility] BILIRUBIN Negative Negative [facility] NITRITE Negative Negative [facility] [place]UK SHELLEY Negative Negative [facility] RBC/HPF <1 0 - [address] [facility] WBC/HPF 1 0 - [address] [facility] BACTERIA Negative Negative [facility] MUCOUS Slight (A) Negative LPF [facility] HYAL CAST 1 <=[address] [facility] Specimen Urine - URINE, CLEAN CATCH Performing Organization Address City/State/Zipcode Phone Number [facility] CLIA: [id number], [address] [place], [place] [address] CBC WITH DIFFERENTIAL (10/22/2019 6:00 AM CDT) Pathologist Sig nature WBC 5.42 4.20 - 10.70 [facility] 10*3/L HOSPITAL LAB[facility] RBC 4.95 4.26 - 5.52 [facility] 10*6/L H[facility]ITAL [facility] HGB 16.2 12.2 - 16.4 [facility] g/dL H[facility]ITAL [facility] HCT 46.0 38.4 - 49.3 % [facility] MCV 92.9 81.7 - 95.[address] [facility] MCH 32.7 26.1 - 32.[address] [facility] MCHC 35.2 (H) 31.2 - 35.0 [facility] g/dL [facility] RDW-SD 37.6 (L) 38.5 - 51.[address] [facility] RDW-CV 11.2 (L) 12.1 - 15.4 % [facility] PLT 153 150 - 328 [facility] 10*3/L [facility] MPV 11.0 9.8 - 13.[address] [facility] NRBC/100 WBC 0.0 0.0 - 10.0 /100 [facility] WBCs [facility] NRBC x10^3 <0.01 10*3/L [facility] GRAN MAT (NEUT) % 39.4 % [facility] IMM GRAN % 0.40 % [facility] LYMPH % 48.0 % [facility] MONO % 8.7 % [facility] EOS % 2.8 % [facility] BASO % 0.7 % [facility] GRAN MAT x10^3(ANC) 2.14 1.99 - 6.95 [facility] 10*3/uL HOSPITAL LAB[facility] IMM GRAN x10^3 <0.03 0.00 - 0.06 [facility] 10*3/uL [facility] LYMPH x10^3 2.60 1.09 - 3.23 [facility] 10*3/uL [facility] MONO x10^3 0.47 0.36 - 1.02 [facility] 10*3/uL H[facility]ITAL [facility] EOS x10^3 0.15 0.06 - 0.53 [facility] 10*3/uL [facility]ITAL [facility] BASO x10^3 0.04 0.01 - 0.09 [facility] 10*3/uL [facility] Specimen Blood - VENOUS Performing Organization Address City/State/Zipcode Phone Number [facility] CLIA: [id number], [address] [place] [address] 15 LAB[facility]ATORY Hospital [facility] (10/22/2019 6:00 AM CDT) Pathologist Sig nature MAGNESIUM 1.5 (L) 1.7 - 2.4 mg/dL [facility] Specimen Blood - VENOUS Performing Organization Address [facility] Phone Number [facility] CLIA: [id number], [address] [place] [address] Troponin I (10/22/2019 6:00 AM CDT) Pathologist Sig nature TROPONIN I 0.002 <=0.034 ng/mL [facility] Specimen Blood - VENOUS Narrative Performed At Equal or Less than 0.034 ng/ml---Normal [facility] Note: Cardiac troponin begins to rise 3-4 hours after the onset of ischemia. Repeat in 4-6 hours if the sample was drawn within 3-4 hours of the onset of the symptom and found normal. Between 0.035 and 0.120 ng/mL--- Borderline. Questionable myocardial injury or necros is Note: Serial measurement may be necessary to confirm or exclude the diagnosis of myocardial injury or necrosis; Clinical correlation (symptoms, EKGs, imaging studies, and others) required; Repeat in 4-6 hours if clinically indicated. Equal or Higher than 0.121 ng/mL---Abnormal. Myocardial Injury or Necrosis Likely Biotin has been reported to cause a negative bias, interpret results relative to patient's use of biotin. Performing Organization Address [facility] Phone Number [facility] CLIA: [id number], [address] [place] [address] 15 LABORATORY Hospital [facility] Basic Metabolic Panel (NA, K, CL, CO2, GLUCOSE, BUN, CREATININE, CA) (10/22/2019 6:00 AM CDT) NA 138 135 - 145 [facility] mmol/L [facility] K 3.7 3.5 - 5.0 [facility] mmol/L [facility] CL 101 98 - 108 mmol/L [facility] CO2 TOTAL 23 23 - 31 mmol/L [facility] AGAP 14 2 - 16 [facility] BUN 8 7 - 23 mg/dL [facility] GLUCOSE 261 (H) 70 - 110 mg/dL [facility] CREATININE 0.46 (L) 0.60 - 1.25 [facility] mg/dL [facility] CALCIUM 9.7 8.6 - 10.6 [facility] mg/dL [facility] eGFR Calculation 184.3 mL/min/1.73m2 [facility] ([facility] LAB[facility]ATORY [place]) eGFR Calculation 223.4 mL/min/1.73m2 [facility] () [facility] Specimen Blood - VENOUS Narrative Performed At [facility] of Glomerular Filtration Rate (GFR) [facility] and Staging of Kidney Disease* + + +- + | GFR (mL/min/1.73 m2) | With Kidney Damage | Without Kidney Damage + + +- + | >90 | Stage one | Normal + + +- + | 60-89 | Stage two | Decreased GFR + + +- + | 30-59 | Stage three | Stage three + + +- + | 15-29 | Stage four | Stage four + + +- + | <15 (or dialysis) | Stage five | Stage five + + +- + *Each stage assumes the associated GFR level has been in effect for at least three months. Stages 1 to 5, with or without kidney disease, indicate chronic kidney disease. Notes: Determination of stages one and two (with eGFR >59mL/min/1.73 m2) requires estimation of kidney damage for at least three months as defined by structural or functional abnormalities of the kidney, manifested by either: Pathological abnormalities or Markers of kidney damage (including abnormalities in the composition of the blood or urine or abnormalities in imaging tests). Performing Organization Address [facility] Phone Number [facility] CLIA: [id number], [address] [place] [address] [facility] POCT GLUCOSE (AUTOMATED) (10/22/2019 5:50 AM CDT) [facility] POCT GLU 254 (H) 70 - 110 mg/dL [facility] Specimen Blood Performing Organization Address [facility] Phone Number [facility] CLIA: [id number], [address] [place], [place] [address] [facility] documented in this encounter Visit Diagnoses Diagnosis Vertigo - Primary Dizziness and giddiness documented in this encounter Administered Medications Medication Order MAR Action Action Date Dose Rate Site LORazepam (ATIVAN) injection 1 mg Given 10/22/2019 6:07 AM CDT 1 mg 1 mg, Slow IV Push, ONCE, 1 dose, 10/22/19 at 0700, STAT magnesium sulfate 4 mEq/mL (50 %) injection Given 10/09 6:40 AM CDT 16 mEq 16 mEq 16 mEq (2 g), IV Piggyback, ONCE, 1 dose, Tue10/22/19 at 0745, STAT meclizine (TRAVEL-EASE (MECLIZINE)) tablet 25 Given 6:07 AM CDT 25 mg mg 25 mg, Oral, ONCE, 1 dose, Tue10/22/19 at 0700, KAREN NaCl 0.9% (NS) bolus infusion New Bag 10/22/2019 6:07 AM CDT 1,000 mL 999 mL/hr 1,000 mL at 999 mL/hr, 1,000 mL, IV Infusion, ONCE, 1 dose, Tue10/22/19 at 0600, KAREN documented in this encounter Insurance Payer Benefit Plan / Subscriber ID Effective Dates Phone Addre ss Type Group AETNA AETNA CHOICE [id number] 2019-Pres POS POS II ent MEDICARE MEDICARE PART xxxxxxxxxxx 2011-Presen [phone] Medicare A & B t 2 [id number] VINNY ZAMAN [id number] documented as of this encounter
--- OUTSIDE RECORDS SUMMARY | 2020-01-06 11:37 | XMS REPORT | Summary of Care ---
:1955 Author Organization [facility] Address [address] [place] [address] Care Team Providers Name Role Phone Raf Dixon Primary Care Provider Reason for Visit Reason Comments Prescription Encounter Details Date Type Department Care Team Description 12/14/2019 Telephone [facility] Orthopaedic Stephen Brewer MD Prescription Surgery- [place] [address] [facility], [place] [address] [place] [address] [place], [place] [phone] Allergies No Known Allergiesdocumented as of this encounter (statuses as of 12/17/2019) Medications Medication Sig Dispensed Refills Start Date [...] Vertigo times daily as needed for Dizziness. diclofenac 75 mg EC Take 1 tablet by 60 tablet 1 12/17/2019 Active tablet mouth 2 (two) times daily with meals. documented as of this encounter (statuses as of 12/17/2019) Active Problems Problem Noted Date Left knee pain 09/12/2015 Right hip pain 09/12/2015 Right wrist pain 09/12/2015 BMI 45.0-49.9, adult 02/28/2015 Right lower quadrant abdominal pain 02/28/2015 documented as of this encounter (statuses as of 12/17/2019) Social History Tobacco Use Types Packs/Day Years [...] of this encounter Last Filed Vital Signs Not on filedocumented in this encounter Plan of Treatment Health [...] Results Not on filedocumented in this encounter Insurance Payer Benefit Plan / Subscriber ID Effective Dates Phone Addre ss Type Group MEDICARE MEDICARE PART xxxxxxxxxxx 2011-Lucila [phone] [address] Medicare A & B t 2 [id number] VINNY ZAMAN [id number] AETNA AETNA CHOICE [id number] 2019-Pres POS POS II ent documented as of this encounter
--- OUTSIDE RECORDS SUMMARY | 2020-01-06 11:37 | XMS REPORT | Summary of Care ---
:1955 Author Organization [facility] Address [address] [place] [address] Care Team Providers Name Role Phone Raf Dixon Primary Care Provider Reason for Visit Reason Comments New Evaluation Knee Pain Rt Encounter Details Date Type Department Care Team Description 12/06/2019 Office Visit [facility] Orthopaedic Stephen Brewer eft knee pain, Surgery- Nora Granados MD unspecified chronicity [address] [facility], [address] (Primary Dx) [place] [address] [place] [address] [place], [place] [phone] Allergies No Known Allergiesdocumented as of [...] Right 12/2014, HIP RESECTION ARTHROPLASTY Left 1999 [place] ANESTH,KNEE AREA SURGERY Left 2011, 2013 Social [...] file Gets together: Not on file Attends muslim service: Not on file Active member of [...] Addre ss Type Group AETNA AETNA CHOICE [id number] 2019-Pres POS POS II ent MEDICARE MEDICARE PART xxxxxxxxxxx 2011-Presen [phone] [address] [facility] Medicare A & B t 2 [id number] VINNY ZAMAN [id number] documented as of this encounter
--- OUTSIDE RECORDS SUMMARY | 2020-01-06 11:38 | XMS REPORT | Summary of Care ---
:1955 Author Organization [facility] Address [address] [place] [address] Care Team Providers Name Role Phone Raf Dixon Primary Care Provider Reason for Visit Reason Comments UPPER RESPIRATORY INFECTION Encounter Details Date Type Department Care Team Description 01/03/2020 Telephone [facility] Family Pob1, Acute Care UPPER RESPIRATORY Medicine - [facility] INFECTION [address] [place] [address] [place] [address] Allergies No Known Allergiesdocumented as of this encounter (statuses as of 01/04/2020) Medications Medication Sig Dispensed Refills Start Date [...] as of this encounter (statuses as of 01/04/2020) Active Problems Problem Noted Date Left knee pain 09/12/2015 Right hip pain 09/12/2015 Right wrist pain 09/12/2015 BMI 45.0-49.9, adult 02/28/2015 Right lower quadrant abdominal pain 02/28/2015 documented as of this encounter (statuses as of 01/04/2020) Social History Tobacco Use Types Packs/Day Years [...] filedocumented in this encounter Plan of Treatment Date Type Specialty Care Team Description 01/07/2020 Urgent Care Family Medicine Pob1, Acute Care Clinic Health Maintenance Due Date Last Done Comments [...] Type Group MEDICARE MEDICARE PART xxxxxxxxxxx 2011-Lucila [phone] [address] Medicare A & B t 2 [id number] VINNY ZAMAN [id number] AETNA AETNA CHOICE [id number] 2019-Pres POS POS II ent documented as of this encounter
--- OUTSIDE RECORDS SUMMARY | 2020-01-06 11:38 | XMS REPORT | Summary of Care ---
:1955 Author Organization [facility] Address [address] [place] [address] Care Team Providers Name Role Phone Raf Dixon Primary Care Provider Reason for Visit Reason Comments New Evaluation Knee Pain Rt Encounter Details Date Type Department Care Team Description 12/06/2019 Office Visit [facility] Orthopaedic Stephen Brewer eft knee pain, Surgery- Nora Granados MD unspecified chronicity [address] [facility], [address] (Primary Dx) [address] [place] [address] [place], [place] [phone] Allergies No Known Allergiesdocumented as of this encounter (statuses as of 12/26/2019) Medications Medication Sig Dispensed Refills Start Date [...] as of this encounter (statuses as of 12/26/2019) Active Problems Problem Noted Date Left knee pain 09/12/2015 Right hip pain 09/12/2015 Right wrist pain 09/12/2015 BMI 45.0-49.9, adult 02/28/2015 Right lower quadrant abdominal pain 02/28/2015 documented as of this encounter (statuses as of 12/26/2019) Social History Tobacco Use Types Packs/Day Years [...] Right 12/2014, HIP RESECTION ARTHROPLASTY Left 1999 [place] ANESTH,KNEE AREA SURGERY Left 2011, 2013 Social [...] file Gets together: Not on file Attends baptism service: Not on file Active member of [...] intact. Nursing note and vitals reviewed. Assessment/Plan right knee djd Patient received an ultrasound guided injection of 1cc kenalog and 4cc lidocaine to the right knee. The knee was examined and the knee was marked with the needle In the middle of the lateral joint linejust lateral to the patellar tendon the knee was then prepped 3 times with Betadine in a Bullseye fashion and then once with alcohol allowing it to soak at least 20 seconds. Ultrasound guidance was used to direct the needle posterior to the fat pad and an injection was administered of 1 cc Kenalog with 4 cc 1% lidocaine without epinephrine without resistance. The skin was cleansed with alcohol and then dried with a sterile 4 x 4 and a sterile Band-Aid was applied patient tolerated procedure without d ifficulty. documented in this encounter Plan of Treatment [...] Addre ss Type Group AETNA AETNA CHOICE [id number] 2019-Pres POS POS II ent MEDICARE MEDICARE PART xxxxxxxxxxx 2011-Presen [phone] [address] Medicare A & B t 2 [id number] SHERIN TRUMBULLVINNY [phone] documented as of this encounter
--- NOTE | 2020-01-06 14:06 | RAD REPORT ---
EXAM DESCRIPTION: Emmy Single View01/06/2020 1:31 pm CLINICAL HISTORY: cough COMPARISON: 2018 FINDINGS: The patient is in a poor degree of inspiration resulting crowding of the pulmonary vessel s The lungs appear clear of acute infiltrate. The heart is normal size
--- NOTE | 2020-01-06 14:22 | ER ---
Nurse's Notes [facility] Name: Charanjit Lopez Age: 64 yrs Sex: Male : 1955 Arrival Date: 01/06/2020 Time: 11:34 Bed 6 Private MD: Diagnosis: Acute upper respiratory infection, unspecified Presentation: 01/05 11:53 Chief complaint: Patient states: Started with a cough 5-6 days ago, SOB started this rb1 morning, loss of sense of smell, and bodyaches. Coronavirus screen: Patient reports a cough. Patient reports shortness of breath or difficulty breathing. Patient denies measured and/or subjective temperature greater than 100.4F prior to today's visit. Patient denies travel on a cruise ship or to a country the [facility] currently lists as an affected area. Patient denies contact with known and/or suspected case of COVID-19. Ebola Screen: Patient negative for fever greater than or equal to 101.5 degrees Fahrenheit, and additional compatible Ebola Virus Disease symptoms. Initial Sepsis Screen: Does the patient meet any 2 criteria? No. Patient's initial sepsis screen is negative. Does the patient have a suspected source of infection? Yes: Productive cough/pneumonia. Risk Assessment: Do you want to hurt yourself or someone else? Patient reports no desire to harm self or others. Onset of symptoms was December 31, 2019. 11:53 Method Of Arrival: Ambulatory rb1 11:53 Acuity: DARION 3 rb1 Triage Assessment: 11:53 General: Appears in no apparent distress. comfortable, Behavior is calm, cooperative, rb1 Denies fever. Pain: Complains of pain in back Quality of pain is described as aching. Neuro: Level of Consciousness is awake, alert, obeys commands, Oriented to person, place, time, situation. Cardiovascular: Capillary refill < 3 seconds. Respiratory: Reports shortness of breath cough that is Onset: The symptoms/episode began/occurred cough started 5-6 days ago and SOB started today, the patient has mild shortness of breath. Respiratory: Reports Loss of smell. GI: No signs and/or symptoms were reported involving the gastrointestinal system. : No signs and/or symptoms were reported regarding the genitourinary system. Derm: Skin is pink, warm \T\ dry. Historical: - Allergies: 11:53 NKA; rb1 - Home Meds: 11:53 metformin 1,000 mg Oral tab 1 tab 2 times per day [Active]; probiotics [Active]; rb1 Vitamin B-12 Oral [Active]; Vitamin C Oral [Active]; Omeprazole Oral [Active]; Day Quil [Active]; - PMHx: 11:53 Chronic pain; Diabetes - NIDDM; rb1 - PSHx: 11:53 bilateral hip; Knee surgery; rb1 - Immunization history:: Adult Immunizations up to date. - Social history:: Smoking status: Patient/guardian denies using. Screenin:53 Abuse screen: Denies threats or abuse. Nutritional screening: No deficits noted. rb1 Tuberculosis screening: No symptoms or risk factors identified. Fall Risk None identified. Assessment: 11:53 Respiratory: Airway is patent Respiratory effort is even, unlabored, Respiratory rb1 pattern is regular, symmetrical. 11:53 General: See triage assessment. rb1 12:50 Reassessment: Patient appears in no apparent distress at this time. No changes from rb1 previously documented assessment. 13:50 Reassessment: Patient appears in no apparent distress at this time. Patient and/or rb1 family updated on plan of care and expected duration. Pain level reassessed. Patient is alert, oriented x 3, equal unlabored respirations, skin warm/dry/pink. 14:48 Reassessment: Patient appears in no apparent distress at this time. No changes from rb1 previously documented assessment. Vital Signs: 11:53 BP 152 / 99; Pulse 99; Resp 20; Temp 99.7(TE); Pulse Ox 97% on R/A; Weight 122.47 kg rb1 (R); Height 5 ft. 6 in. (167.64 cm); 12:45 BP 129 / 76; Pulse 101; Resp 19; Pulse Ox 94% on R/A; rb1 13:43 BP 128 / 73; Pulse 103; Resp 19; Pulse Ox 94% on R/A; rb1 14:45 BP 126 / 75; Pulse 100; Resp 17; Pulse Ox 95% on R/A; rb1 11:53 Body Mass Index 43.58 (122.47 kg, 167.64 cm) rb1 ED Course: 11:34 Patient arrived in ED. as 11:47 Vianney Louis, INEZ is Primary Nurse. rb1 11:48 Osiel Krause NP is PHCP. pm1 11:48 Bari Muniz MD is Attending Physician. pm1 11:49 Vianney Louis, RN is Primary Nurse. rb1 11:53 Arm band placed on right wrist. rb1 11:53 Patient has correct armband on for positive identification. Bed in low position. Call rb1 light in reach. Side rails up X 1. Pulse ox on. NIBP on. Warm blanket given. 12:13 COVID was sent. rb1 12:26 Triage completed. rb1 13:31 CXR XRAY In Process Unspecified. EDMS 15:00 No provider procedures requiring assistance completed. Patient did not have IV access rb1 during this emergency room visit. Administered Medications: 14:57 Drug: Tussionex Pennkinetic ER 5 ml Route: PO; rb1 15:00 Follow up: Response: Medication administered at discharge. rb1 Outcome: 14:21 Discharge ordered by MD. pm1 15:00 Patient left the ED. rb1 15:00 Discharged to home ambulatory. rb1 15:00 Condition: stable 15:00 Discharge instructions given to patient, Instructed on discharge instructions, follow up and referral plans. medication usage, Demonstrated understanding of instructions, follow-up care, medications, Prescriptions given X 1. Addendum: 01/08/2020 19:20 Addendum: Other Dr. Avilez attempted to call for COVID positive results; left voice l p1 message. 01/09/2020 14:23 Addendum: Other Dr. Avilez spoke with patient regarding his COVID results. Pt s s verbalizes understanding to monitor his symptoms and if he gets worse to be seen for further evaluation and treatment. Signatures: Dispatcher [employer] [facility] Ema Crawford Shelby, INEZ RN Rose Mary Persaud, RN RN lp1 Vianney Louis, RN RN rb1 Osiel Krause, SIVA FACILITY MANAGER pm1
--- NOTE | 2020-01-06 14:22 | EDPHYS ---
Physician Documentation [facility] Name: Charanjit Lopez Age: 64 yrs Sex: Male : 1955 Arrival Date: 01/06/2020 Time: 11:34 Bed 6 Private MD: ED Physician Bari Muniz HPI: 01/05 12:08 This 64 yrs old Male presents to ER via Ambulatory with complaints of Cough. pm1 12:08 The patient or guardian reports cough. pm1 12:08 Onset: The symptoms/episode began/occurred 6 day(s) ago. Severity of symptoms: in the pm1 emergency department the symptoms are actually worse. Modifying factors: The symptoms are alleviated by nothing, the symptoms are aggravated by nothing. Associated signs and symptoms: Pertinent positives: Lost in sense of smell two days ago, Pertinent negatives: chest pain, ear ache, fever, sore throat. The patient has not experienced similar symptoms in the past. The patient has not recently seen a physician. Patient's shortness of breath is defined as coughing when he takes in a deep breath. Historical: - Allergies: 11:53 NKA; rb1 - Home Meds: 11:53 metformin 1,000 mg Oral tab 1 tab 2 times per day [Active]; probiotics [Active]; rb1 Vitamin B-12 Oral [Active]; Vitamin C Oral [Active]; Omeprazole Oral [Active]; Day Quil [Active]; - PMHx: 11:53 Chronic pain; Diabetes - NIDDM; rb1 - PSHx: 11:53 bilateral hip; Knee surgery; rb1 - Immunization history:: Adult Immunizations up to date. - Social history:: Smoking status: Patient/guardian denies using. ROS: 12:08 Constitutional: Negative for fever, chills, and weight loss, Eyes: Negative for injury, pm1 pain, redness, and discharge, ENT: Negative for injury, pain, and discharge, Neck: Negative for injury, pain, and swelling, Cardiovascular: Negative for chest pain, palpitations, and edema. 12:08 Abdomen/GI: Negative for abdominal pain, nausea, vomiting, diarrhea, and constipation, Back: Negative for injury and pain, MS/Extremity: Negative for injury and deformity, Skin: Negative for injury, rash, and discoloration, Neuro: Negative for headache, weakness, numbness, tingling, and seizure. 12:08 Respiratory: Positive for cough, Negative for shortness of breath, sputum production, wheezing. Exam: 12:08 Constitutional: This is a well developed, well nourished patient who is awake, alert, pm1 and in no acute distress. Head/Face: Normocephalic, atraumatic. Eyes: Pupils equal round and reactive to light, extra-ocular motions intact. Lids and lashes normal. Conjunctiva and sclera are non-icteric and not injected. Cornea within normal limits. Periorbital areas with no swelling, redness, or edema. ENT: Nares patent. No nasal discharge, no septal abnormalities noted. Tympanic membranes are normal and external auditory canals are clear. Oropharynx with no redness, swelling, or masses, exudates, or evidence of obstruction, uvula midline. Mucous membranes moist. Neck: Trachea midline, no thyromegaly or masses palpated, and no cervical lymphadenopathy. Supple, full range of motion without nuchal rigidity, or vertebral point tenderness. No Meningismus. Chest/axilla: Normal chest wall appearance and motion. Nontender with no deformity. No lesions are appreciated. 12:08 Abdomen/GI: Soft, non-tender, with normal bowel sounds. No distension or tympany. No guarding or rebound. No evidence of tenderness throughout. Back: No spinal tenderness. No costovertebral tenderness. Full range of motion. Skin: Warm, dry with normal turgor. Normal color with no rashes, no lesions, and no evidence of cellulitis. MS/ Extremity: Pulses equal, no cyanosis. Neurovascular intact. Full, normal range of motion. 12:08 Cardiovascular: Rate: normal, Rhythm: regular, Pulses: no pulse deficits are appreciated. 12:08 Respiratory: Exam negative for acute changes, respiratory distress, shortness of breath. 12:08 Neuro: Exam negative for acute changes, Orientation: is normal, Motor: is normal, moves all fours. Vital Signs: 11:53 BP 152 / 99; Pulse 99; Resp 20; Temp 99.7(TE); Pulse Ox 97% on R/A; Weight 122.47 kg rb1 (R); Height 5 ft. 6 in. (167.64 cm); 12:45 BP 129 / 76; Pulse 101; Resp 19; Pulse Ox 94% on R/A; rb1 13:43 BP 128 / 73; Pulse 103; Resp 19; Pulse Ox 94% on R/A; rb1 14:45 BP 126 / 75; Pulse 100; Resp 17; Pulse Ox 95% on R/A; rb1 11:53 Body Mass Index 43.58 (122.47 kg, 167.64 cm) rb1 MDM: 11:48 Patient medically screened. pm1 14:20 Data reviewed: vital signs. Data interpreted: Pulse oximetry: on room air is 97 %. pm1 Interpretation: normal. Counseling: I had a detailed discussion with the patient and/or guardian regarding: the historical points, exam findings, and any diagnostic results supporting the discharge/admit diagnosis, lab results, radiology results, the need for outpatient follow up, to return to the emergency department if symptoms worsen or persist or if there are any questions or concerns that arise at home. 01/05 12:08 Order name: COVID-19 pm1 01/05 12:08 Order name: Flu; Complete Time: 13:23 pm1 01/05 12:08 Order name: CXR XRAY; Complete Time: 14:19 pm1 01/05 12:08 Order name: Strep; Complete Time: 13:23 pm1 01/05 13:09 Order name: Throat Culture EDCA 01/05 12:08 Order name: Droplet/Contact Precautions; Complete Time: 13:49 pm1 01/05 12:08 Order name: Labs collected and sent; Complete Time: 13:49 pm1 01/05 12:08 Order name: O2 Per Protocol; Complete Time: 12:10 pm1 Administered Medications: 14:57 Drug: Tussionex Pennkinetic ER 5 ml Route: PO; rb1 15:00 Follow up: Response: Medication administered at discharge. rb1 Disposition: 15:41 Co-signature as Attending Physician, Bari Muniz MD. rn Disposition: 01/06/20 14:21 Discharged to Home. Impression: Acute upper respiratory infection, unspecified. - Condition is Stable. - Discharge Instructions: Upper Respiratory Infection, Adult, COVID-19. - Prescriptions for Guaifenesin AC 10- 100 mg/5 mL Oral Liquid - take 10 milliliter by ORAL route every 4 hours As needed; 240 milliliter. - Medication Reconciliation Form, Thank You Letter, Antibiotic Education, Prescription Opioid Use, Work release form form. - Follow up: Emergency Department; When: As needed; Reason: Worsening of condition. Follow up: Private Physician; When: 2 - 3 days; Reason: Recheck today's complaints, Continuance of care, Re-evaluation by your physician. - Problem is new. - Symptoms have improved. Signatures: Dispatcher [employer] EDMS Bari Muniz MD MD rn Barber, Rebecca, RN RN rb1 Osiel Krause, SIVA TEACHING AIDE pm1 Corrections: (The following items were deleted from the chart) 15:00 14:21 01/06/2020 14:21 Discharged to Home. Impression: Acute upper respiratory rb1 infection, unspecified. Condition is Stable. Forms are Medication Reconciliation Form, Thank You Letter, Antibiotic Education, Prescription Opioid Use. Follow up: Emergency Department; When: As needed; Reason: Worsening of condition. Follow up: Private Physician; When: 2 - 3 days; Reason: Recheck today's complaints, Continuance of care, Re-evaluation by your physician. Problem is new. Symptoms have improved. pm1
[2020-01-06] MEDS ORDERED: HYDROCODONE/CHLORPHEN 5 ML/OSYR ONE (14:46)
[2020-01-06 15:04] VITALS: TEMP 99.7
[2020-01-06 15:06] VITALS: O2SAT 94
[2020-01-06 15:07] VITALS: BP 128/73
== END 2020-01-06 15:00 | disposition home or self-care (01) ==
LOC: ER 11:33
DX: U07.1 COVID-19 (principal); J06.9 Acute upper respiratory infection, unspecified; E11.9 Type 2 diabetes mellitus without complications
CPT/HCPCS: 87070; 87081; 87804 ×2; 71045; 99284; U0001

== ENCOUNTER 2020-01-13 11:25 | Emergency (ER) | payer OTHER ==
--- OUTSIDE RECORDS SUMMARY | 2020-01-13 11:28 | XMS REPORT | Continuity of Care Document ---
:1955 Author Organization [facility] t Address [address] [place] [address] Care Team Providers Name Role Phone Ponoreen, [...] Clinicians Facility Department ID 2020-01-03 2020-01-03 Telephone [facility], [facility] [id number] 00:00:00 00:00:00 [facility] [id number] [place] [id number] Professio [phone] [address] 2019-12-06 2019-12-26 Office ANITA Brewer [id number] 13:43:57 08:05:44 [facility] [id number] Surgical [id number] Specialti [phone] 198 [place] Results This patient has no known results.
[2020-01-13] MEDS ORDERED: AZITHROMYCIN 250 MG TAB ONE (12:20)
[2020-01-13] MEDS ORDERED: predniSONE 20 MG TAB ONE (12:20)
[2020-01-13 12:29] LABS: ALT/SGPT 73 U/L (12-78); AST/SGOT 51 U/L (15-37); Albumin 2.8 g/dL (3.4-5.0); Alkaline Phosphatase 77 U/L (45-117); BUN Blood Urea Nitrogen 10 mg/dL (7-18); Bicarbonate 23 mmol/L (21-32); Bilirubin Total 1.2 mg/dL (0.2-1.0); Glucose Level 310 mg/dL (74-106); Potassium 3.5 mmol/L (3.5-5.1); Protein, Total 8.3 g/dL (6.4-8.2); Sodium Level 135 mmol/L (136-145)
[2020-01-13 12:31] LABS: Absolute Lymphocytes (CBC) 0.7 K/uL (0.7-4.9); Basophils % 0.3 % (0-1.3); Hematocrit 45.5 % (39.6-49.0); Lymphocytes % 10.4 % (15.3-44.8); RBC Red Blood Cell Count 4.83 M/uL (4.33-5.43)
--- NOTE | 2020-01-13 12:50 | EDPHYS ---
Physician Documentation [facility] Name: Charanjit Lopez Age: 64 yrs Sex: Male : 1955 Arrival Date: 01/13/2020 Time: 11:27 Bed 8 Private MD: Raf Dixon ED Physician Hazel Beltrán HPI: 01/12 12:48 This 64 yrs old Male presents to ER via Ambulatory with complaints of COVID ma2 Positive, Breathing Difficulty. 12:48 The patient has shortness of breath during heavy activity. Onset: The symptoms/episode ma2 began/occurred gradually, 1 week(s) ago. Associated signs and symptoms: Pertinent negatives: productive cough, dizziness, loss of consciousness, nausea. Severity of symptoms: At their worst the symptoms were mild in the emergency department the symptoms are unchanged. The patient has not experienced similar symptoms in the past. covid ++ spo2 is 93 on ra. Historical: - Allergies: 11:46 NKA; sv - PMHx: 11:46 Chronic pain; Diabetes - NIDDM; sv - PSHx: 11:46 Knee surgery; bilateral hip; sv - Immunization history:: Adult Immunizations up to date. - Social history:: Patient/guardian denies using alcohol, street drugs, The patient lives with family, Smoking status: Patient denies any tobacco usage or history of. - Family history:: not pertinent. ROS: 12:48 Constitutional: Negative for fever, chills, and weight loss. ma2 12:48 All other systems are negative. Exam: 12:48 Constitutional: This is a well developed, well nourished patient who is awake, alert, ma2 and in no acute distress. ENT: Nares patent. No nasal discharge, no septal abnormalities noted. Tympanic membranes are normal and external auditory canals are clear. Oropharynx with no redness, swelling, or masses, exudates, or evidence of obstruction, uvula midline. Mucous membranes moist. Neck: Trachea midline, no thyromegaly or masses palpated, and no cervical lymphadenopathy. Supple, full range of motion without nuchal rigidity, or vertebral point tenderness. No Meningismus. Chest/axilla: Normal chest wall appearance and motion. Nontender with no deformity. No lesions are appreciated. Cardiovascular: Regular rate and rhythm with a normal S1 and S2. No gallops, murmurs, or rubs. Normal PMI, no JVD. No pulse deficits. Respiratory: Lungs have equal breath sounds bilaterally, clear to auscultation and percussion. No rales, rhonchi or wheezes noted. No increased work of breathing, no retractions or nasal flaring. Abdomen/GI: Soft, non-tender, with normal bowel sounds. No distension or tympany. No guarding or rebound. No evidence of tenderness throughout. MS/ Extremity: Pulses equal, no cyanosis. Neurovascular intact. Full, normal range of motion. Neuro: Awake and alert, GCS 15, oriented to person, place, time, and situation. Cranial nerves II-XII grossly intact. Motor strength 5/5 in all extremities. Sensory grossly intact. Cerebellar exam normal. Normal gait. Vital Signs: 11:43 BP 102 / 84; Pulse 124; Resp 30; Pulse Ox 92% on R/A; Weight 118.84 kg; Height 5 ft. 6 sv in. (167.64 cm); 12:07 BP 128 / 91; Pulse 102; Resp 18 S; Pulse Ox 98% on 2 lpm NC; ca1 12:34 BP 130 / 81; Pulse 95; Resp 18 S; Pulse Ox 95% on 2 lpm NC; ca1 11:43 Body Mass Index 42.29 (118.84 kg, 167.64 cm) sv MDM: 11:58 Patient medically screened. ma2 12:48 Differential diagnosis: pneumonia, Pneumothorax reactive airway disease. Antibiotic ma2 administration: The patient is discharged and will get outpatient antibiotics. Data reviewed: vital signs, nurses notes. Counseling: I had a detailed discussion with the patient and/or guardian regarding: the historical points, exam findings, and any diagnostic results supporting the discharge/admit diagnosis, the presence of at least one elevated blood pressure reading (>120/80) during this emergency department visit, the need for outpatient follow up. 01/12 11:59 Order name: CBC with Diff; Complete Time: 12:48 ma2 01/12 11:59 Order name: CMP; Complete Time: 12:48 ma2 01/12 11:59 Order name: Blood Culture Adult (2) ma2 01/12 11:59 Order name: Recheck Vital Signs; Complete Time: 12:07 ma2 Administered Medications: 12:10 Drug: AZITHromycin 500 mg Route: PO; ca1 12:45 Follow up: Response: No adverse reaction ca1 12:12 Drug: predniSONE 60 mg Route: PO; ca1 12:45 Follow up: Response: No adverse reaction; Marked relief of symptoms ca1 Disposition: 01/13/20 12:50 Discharged to Home. 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 - Condition is Stable. - Discharge Instructions: COVID-19. - Prescriptions for Tessalon Perles 100 mg Oral Capsule - take 1 capsule by ORAL route every 8 hours As needed; 15 capsule. Zithromax Z- José Antonio 250 mg Oral Tablet - take 1 tablet by ORAL route as directed for 5 days Day 1 - take two (2) tablets one time. Day 2, 3, 4 , 5 take one (1) tablet once daily.; 6 tablet. Medrol (José Antonio) 4 mg Oral Tablets, Dose Pack - take 1 tablet by ORAL route as directed - follow package instructions; 1 packet. Albuterol Sulfate 90 mcg/actuation - inhale 1-2 puff by INHALATION route every 4-6 hours; 1 Inhaler. - Medication Reconciliation Form, Thank You Letter, Antibiotic Education, Prescription Opioid Use form. - Follow up: Private Physician; When: Tomorrow; Reason: Continuance of care. Signatures: Dispatcher [employer] Anna Humphries RN RN Hazel Beltrán MD MD ma2 Shelly Heath RN RN ca1 Corrections: (The following items were deleted from the chart) 13:05 12:50 01/13/2020 12:50 Discharged to Home. Impression: Congenital pneumonia due to ca1 other organisms; Coronavirus infection, unspecified. Condition is Stable. Prescriptions for Tessalon Perles 100 mg Oral Capsule - take 1 capsule by ORAL route every 8 hours As needed; 15 capsule, Zithromax Z-José Antonio 250 mg Oral Tablet - take 1 tablet by ORAL route as directed for 5 days Day 1 - take two (2) tablets one time. Day 2, 3, 4 , 5 take one (1) tablet once daily.; 6 tablet, Medrol (José Antonio) 4 mg Oral Tablets, Dose Pack - take 1 tablet by ORAL route as directed - follow package instructions; 1 packet, Albuterol Sulfate 90 mcg/actuation - inhale 1-2 puff by INHALATION route every 4-6 hours; 1 Inhaler. and Forms are Medication Reconciliation Form, Thank You Letter, Antibiotic Education, Prescription Opioid Use. Follow up: Private Physician; When: Tomorrow; Reason: Continuance of care. ma2
--- NOTE | 2020-01-13 12:50 | ER ---
Nurse's Notes 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 sv Coronavirus screen: Surgical mask placed on patient. Patient moved to private room, placed in contact and droplet isolation with eye protection until further assessment. Patient reports a cough. Patient reports shortness of breath or difficulty breathing. Patient denies measured and/or subjective temperature greater than 100.4F prior to today's visit. Patient denies travel on a cruise ship or to a country the [facility] currently lists as an affected area. Patient denies contact with known and/or suspected case of COVID-19. Prior COVID test are currently unavailable. Ebola Screen: No symptoms or risks identified at this time. Initial Sepsis Screen: Does the patient meet any 2 criteria? RR > 20 per min. HR > 90 bpm. Yes Does the patient have a suspected source of infection? Yes: Other: cough. Risk Assessment: Do you want to hurt yourself or someone else? Patient reports no desire to harm self or others. Onset of symptoms was 2019. 11:43 Method Of Arrival: Ambulatory sv 11:43 Acuity: DARION 2 sv Triage Assessment: 11:43 General: Appears in no apparent distress. uncomfortable, Behavior is calm, cooperative, sv appropriate for age. Neuro: Level of Consciousness is awake, alert, obeys commands, Oriented to person, place, time, situation, Gait is steady. Respiratory: Reports shortness of breath at rest on exertion cough that is non-productive, Airway is patent Respiratory effort is even, shallow, Respiratory pattern is symmetrical, tachypnea the patient has moderate shortness of breath. Historical: - Allergies: 11:46 NKA; sv - PMHx: 11:46 Chronic pain; Diabetes - NIDDM; sv - PSHx: 11:46 Knee surgery; bilateral hip; sv - Immunization history:: Adult Immunizations up to date. - Social history:: Patient/guardian denies using alcohol, street drugs, The patient lives with family, Smoking status: Patient denies any tobacco usage or history of. - Family history:: not pertinent. Screenin:19 Abuse screen: Denies threats or abuse. Denies injuries from another. Nutritional ca1 screening: No deficits noted. Tuberculosis screening: No symptoms or risk factors identified. Fall Risk IV access (20 points). Assessment: 11:46 Reassessment: Code Sepsis called. sv 12:19 General: Appears in no apparent distress. comfortable, Behavior is calm, cooperative, ca1 appropriate for age. Pain: Denies pain. Neuro: Level of Consciousness is awake, alert, obeys commands, Oriented to person, place, time, situation. Cardiovascular: Heart tones S1 S2 present Capillary refill < 3 seconds Patient's skin is warm and dry. Rhythm is sinus tachycardia. Respiratory: Reports shortness of breath at rest cough that is productive, Airway is patent Respiratory effort is even, unlabored, Respiratory pattern is regular, symmetrical, Breath sounds are clear bilaterally. GI: Abdomen is round non-distended, Bowel sounds present X 4 quads. Abd is soft and non tender X 4 quads. : No signs and/or symptoms were reported regarding the genitourinary system. EENT: No signs and/or symptoms were reported regarding the EENT system. Derm: Skin is intact, is healthy with good turgor, Skin is pink, warm \T\ dry. Musculoskeletal: Circulation, motion, and sensation intact. Capillary refill < 3 seconds. 13:04 Reassessment: Patient appears in no apparent distress at this time. Patient is alert, ca1 oriented x 3, equal unlabored respirations, skin warm/dry/pink. Patient states feeling better. Patient states symptoms have improved. Vital Signs: 11:43 BP 102 / 84; Pulse 124; Resp 30; Pulse Ox 92% on R/A; Weight 118.84 kg; Height 5 ft. 6 sv in. (167.64 cm); 12:07 BP 128 / 91; Pulse 102; Resp 18 S; Pulse Ox 98% on 2 lpm NC; ca1 12:34 BP 130 / 81; Pulse 95; Resp 18 S; Pulse Ox 95% on 2 lpm NC; ca1 11:43 Body Mass Index 42.29 (118.84 kg, 167.64 cm) sv ED Course: 11:27 Patient arrived in ED. mr 11:27 Raf Dixon MD is Private Physician. mr 11:27 Hazel Beltrán MD is Attending Physician. ma2 11:40 Initial lab(s) drawn, by me, sent to lab. Inserted saline lock: 22 gauge in right kj1 antecubital area, using aseptic technique. Blood collected. 11:40 First set of blood cultures drawn. kj1 11:45 Triage completed. sv 11:46 Arm band placed on. sv 11:55 First set of blood cultures drawn Second set of blood cultures drawn by me. kj1 11:58 Shelly Heath, RN is Primary Nurse. ca1 12:19 Patient has correct armband on for positive identification. Bed in low position. Call ca1 light in reach. Side rails up X 1. Pulse ox on. NIBP on. Warm blanket given. Pillow given. 13:05 No provider procedures requiring assistance completed. IV discontinued, intact, ca1 bleeding controlled, No redness/swelling at site. Pressure dressing applied. Administered Medications: 12:10 Drug: AZITHromycin 500 mg Route: PO; ca1 12:45 Follow up: Response: No adverse reaction ca1 12:12 Drug: predniSONE 60 mg Route: PO; ca1 12:45 Follow up: Response: No adverse reaction; Marked relief of symptoms ca1 Outcome: 12:50 Discharge ordered by . ma2 13:05 Discharged to home ambulatory. ca1 13:05 Condition: stable 13:05 Discharge instructions given to patient, Instructed on discharge instructions, follow up and referral plans. medication usage, COVID instructions Demonstrated understanding of instructions, follow-up care, medications, Prescriptions given X 3. 13:05 Patient left the ED. ca1 Signatures: Anna Shields RN RN sv Rivera, Mary mr Hazel Beltrán MD MD ma2 Acob, Cheryl, RN RN ca1 Jackson, Kandis kj1 Corrections: (The following items were deleted from the chart) 12:07 11:50 Inserted saline lock: 22 gauge in right antecubital area, using aseptic kj1 technique. Blood collected. kj1 12:07 11:50 Initial lab(s) drawn, by nc, sent to lab. kj1 kj1
[2020-01-13 13:13] VITALS: BP 130/81; O2SAT 95
== END 2020-01-13 13:05 | disposition home or self-care (01) ==
LOC: ER 11:25
DX: U07.1 COVID-19 (principal); P23.8 Congenital pneumonia due to other organisms; E11.9 Type 2 diabetes mellitus without complications
CPT/HCPCS: 87040 ×2; 85025; 36415; 80053; 99284; J7512

== ENCOUNTER 2020-09-11 11:39 | Day surgery (SDC) | payer OTHER ==
[2020-09-09 13:02] LABS: Absolute Lymphocytes (CBC) 2.5 K/uL (0.7-4.9); Basophils % 0.7 % (0-1.3); Hematocrit 46.5 % (39.6-49.0); Lymphocytes % 41.1 % (15.3-44.8); MPV 8.9 fL (7.6-11.3); RBC Red Blood Cell Count 4.94 M/uL (4.33-5.43)
[2020-09-09 13:06] LABS: BUN Blood Urea Nitrogen 11 mg/dL (7-18); Bicarbonate 30 mmol/L (21-32); Glucose Level 155 mg/dL (74-106); Potassium 3.9 mmol/L (3.5-5.1); Sodium Level 139 mmol/L (136-145)
--- NOTE | 2020-09-09 13:34 | RAD REPORT ---
EXAM DESCRIPTION: Emmy Greene And Ahmet (2 Views)09/09/2020 12:38 pm CLINICAL HISTORY: Preop for cardiac catheterization COMPARISON: December 2019 FINDINGS: The lungs appear clear of acute infiltrate. The heart is normal size IMPRESSION: No acute abnormalities displayed
--- NOTE | 2020-09-10 22:28 | EKG ---
Test Date: 2020-09-09 Test Time: 12:19:05 Survey Research Teacher: MEASUREMENT RESULTS: Intervals: Rate: 68 [place]: 160 QRSD: 96 QT: 408 QTc: 433 [place]: P: 20 [place]: 160 QRS: 207 T: 8 INTERPRETIVE STATEMENTS: Normal sinus rhythm Possible Lateral infarct, age undetermined Inferior infarct, age undetermined Abnormal ECG Compared to ECG 03/11/2020 09:16:47 Myocardial infarct finding now present Electronically Signed On 09-10-20 22:25:42 SADDLE STITCHING MACHINE OPERATOR by David Kennedy
[~2020-09-11 11:39] MED LIST: HEPA 1000U/500MLS 2,000 UNIT/1,000 ML BAG IV ONE
[2020-09-11] MEDS ORDERED: NA CHLORIDE 0.9% 500 ML ONE (12:02)
[2020-09-11] MEDS ORDERED: MIDAZOLAM HCL 2 MG/2 ML INJ ONE (14:19)
[2020-09-11] MEDS ORDERED: HEPARIN 5000 UNIT/ML 1 ML VIAL ONE (14:19)
[2020-09-11] MEDS ORDERED: VERAPAMIL HCL 10 MG/4 ML VIAL IV ONE (14:20)
[2020-09-11] MEDS ORDERED: NITROGLYCERIN 100 MCG/ML SYR (for cath lab use only) IV ONE (14:20)
[2020-09-11] MEDS ORDERED: HEPARIN 10,000 UNIT/10 ML VIAL IV ONE (14:20)
[2020-09-11] MEDS ORDERED: ATROPINE SULF 1 MG/10 ML SYR IV ONE (14:20)
[2020-09-11] MEDS ORDERED: FENTANYL CITR 100 MCG/2 ML ONE (14:20)
[2020-09-11 15:45] VITALS: TEMP 97
[2020-09-11 16:17] VITALS: BP 129/76
[2020-09-11 17:11] VITALS: O2SAT 98
--- NOTE | 2020-09-11 20:58 | OP ---
Date of Procedure: 09/11/2020 Surgeon: PAULA ALVES Procedure Performed: 1.Selective coronary angiogram. 2.Left heart catheterization. Indication: Unstable angina with abnormal stress test. Access Site: Radial artery, closed with TR band. Complications: None. Bleeding: Less than 5 mL. Description Of Procedure: After risks, benefits, and alternatives were explained, the patient agreed to proceed and signed informed consent. We brought the patient to cardiac catheterization laborator y, prepped and draped in usual sterile fashion. Then, we accessed right radial artery using [email or web address] micropuncture kit and then placed 6-Guamanian slender sheath and then we took a 5-[place]ian [place] [address] into the aortic root, engaged left main, the right coronary artery, took standard views. Then th e catheter was pushed over the wire into the LV, crossed the aortic valve. LVEDP was recorded and up on pulling back there was no difference in gradient. Findin.Left main is large, normal. 2.LAD, moderate to large size with normal external portion and at the midportion is about 20% to 30% focal stenosis, otherwise no significant disease distally. 3.Left circumflex, large, no significant disease. 4.RCA, normal. Dominant circulation. No significant disease. 5.LVEDP of 30 mmHg. Impression: 1.Mild nonobstructive coronary artery disease. 2.Slow flow throughout the coronary arteries suggestive of microvascular disease. 3.Borderline LVEDP at 30 mmHg. Plan: 1.Lifestyle modification, aggressive management of coronary artery disease and might need to be star sigrid on coronary vasodilators if continues to have symptoms. 2.Follow up with me in the office in 4 weeks post discharge. SR/MODL Voice ID: [id number] Report ID: [id number]
== END 2020-09-11 16:50 | disposition home or self-care (01) ==
LOC: CCL 11:39
PROVIDERS: ATTEND Internal Medicine
DX: I25.110 Atherosclerotic heart disease of native coronary artery with unstable angina pectoris (principal); E11.9 Type 2 diabetes mellitus without complications; F17.290 Nicotine dependence, other tobacco product, uncomplicated; Z20.822 Contact with and (suspected) exposure to COVID-19
CPT/HCPCS: 93005; 85025; 80048; 36415 ×2; 82947; 85730; 71046; 93458; U0003; C1893; J1644 ×2; J2250; J3010; J7040